=== PATIENT | female | born 1945 | race Caucasian/White ===

== ENCOUNTER 2023-11-07 19:55 | Inpatient (IN) | payer MEDICARE, OTHER, SELFPAY ==
[2023-11-07 20:36] VITALS: BMI 21.6
[2023-11-07 20:37] VITALS: BP 204/99; PULSE 70; RESP 18; TEMP 36.6; O2SAT 98
[2023-11-07 22:10] VITALS: BP 200/88; PULSE 81
[2023-11-07 22:41] VITALS: BP 200/88
[2023-11-07] MEDS: hydrALAZINE HCl 50 MG TABLET 100 MG PO (22:41)
[2023-11-07 22:42] VITALS: BP 200/88
[2023-11-07] MEDS: Montelukast Sodium 10 MG TABLET PO (22:42)
[2023-11-07] MEDS: Losartan Potassium 50 MG TABLET 100 MG PO (22:42)
[2023-11-07 23:46] VITALS: BP 160/65; PULSE 76
--- NOTE | 2023-11-07 23:54 | PC.NURSE ---
Admission Note Isabella Moise (Diana), 77 [id number], presented to [facility] ED for psychosis. She was discharged from [facility] facility on the same day. Patient has an extensive past medical history of Asthma, Hypertension, Hyperlipidemia, Hypokalemia, Polycythemia vera (per patient), Stage 3 chronic kidney disease, bilateral hearing loss, Atherosclerosis, and many more. Diana arrived on [address] at 2215 on 11/07/2023, on 12 B, with an admitting diagnosis of Unspecified Psychosis. She has depression as current psychiatric diagnosis. The patient is Alert & Oriented x 3; behavior cheerful, pleasant, anxious, hyperverbal, thought content appears clear; thought process tangential. Mood pleasant and affects is congruent to mood. She rates her depression 5/10 and Anxiety 9/10, but denies SI/HI/AVH. Diana contracted for safety.? She ambulates independently but she is at high fall risk due to recent fall history. Patient is medication compliant, takes her meds whole. She reported her appetite is getting better but also reported recent? substantial weight loss. Patient is independent of the ADL, Skin intact. VSS except BP; 204/99 at the time of arrival and follow-up was 200/88, provider notified/administered scheduled Losartan 100 mg and Hydralazine 100 mg and subsequent BP was 160/65. Diana's lab results are unremarkable. Med rec completed/provider notified/ med approved by admitting psych provider/MAR active. Patient is fully compliant with the admission process. Unit orientation completed, Safety tool and Treatment plan completed/signed/filed. Legal status education provided. Notice of Rights for Temporary Involuntary Hospitalization form offered/explained/signed/filed. Patient is on a 5 minute safety check.
[2023-11-08] MEDS: traZODone HCL 50 MG TABLET PO ×2 (00:52→21:48)
[2023-11-08 08:14] LABS: Alanine Aminotransferase 33 U/L (0-31); Albumin Level 4.2 g/dL (3.5-5.0); Alkaline Phosphatase 77 U/L (39-117); Anion Gap 12 (12-20); Aspartate Amino Transferase 28 U/L (5-31); Bilirubin Total 0.3 mg/dL (0.0-1.0); Blood Urea Nitrogen 38 mg/dL (9-16); Calcium 10.7 mg/dL (8.4-10.2); Carbon Dioxide 25 mmol/L (22-29); Chloride 105 mmol/L (96-108); Cholesterol 155 mg/dL (<200); Creatinine Clr Calc Pharmacy 28.1; Estimated Glomerular Filt Rate 32; Glucose Fasting 109 mg/dL (60-99); HDL Cholesterol 71 mg/dL (>40); LDL Cholesterol Calculated 73 mg/dL (<100); Potassium 4.2 mmol/L (3.3-5.1); Sodium 138 mmol/L (135-145); Total Protein 6.3 g/dL (6.5-8.0); Triglycerides 56 mg/dL (<150)
[2023-11-08 08:33] VITALS: BP 151/70; PULSE 81; RESP 17; TEMP 36.6; O2SAT 98
[2023-11-08] MEDS: Sertraline HCL 50 MG TABLET PO (08:41)
[2023-11-08] MEDS: NIFEdipine ER 60 MG TAB.ER.24 120 MG PO (08:41)
[2023-11-08] MEDS: hydrALAZINE HCl 50 MG TABLET 100 MG PO ×3 (08:42→20:40)
[2023-11-08] MEDS: Triamterene/HCTZ 37.5/25 TABLET 1 TAB PO (08:42)
--- NOTE | 2023-11-08 10:25 | PC.NURSE ---
During med pass this morning, pt had some requests related to some of her medications and their scheduled times. Requesting that her Lipitor 80 mg be scheduled with her HS medications instead, her Plavix 75mg to be scheduled at 16:30 during dinner, and her Potassium Chloride 40meq to be changed to 20meq in the morning and the other 20meq at 16:30 during dinner as well. These medications have been charted against in the MAR for this morning, and the provider Dr. Saxena has been notified via tiger text of the patient's requests.
[2023-11-08] MEDS: Fluticasone Propionate Nasal 16 GM SPRAY 2 SPRAY NOSTRIL-B (10:38)
[2023-11-08] MEDS: Albuterol Sulfate 90 MCG 8 GM INHALER 2 PUFF INHALE ×2 (11:14→22:28)
--- NOTE | 2023-11-08 12:43 | P.CONHOSP_ITS ---
History of Present Illness Data of Consult Service Date: 11/08/23 Requesting physician: Kofi Trevino Primary Care Provider: Unknown Physician HPI Reason for consult: medical consult 77 yo f with a pmhx of depression ?bipolar, moderate persistent asthma, hypertension, hyperlipidemia, hypokalemia, polycythemia vera, stage IIIB CKD, hearing loss, PID/CAD, hyperparathyroidism, subclinical hypo thyroidism, ARCHIE status post angio 01/19 and 12/21, solitary R kidney, [facility] to psychosis and depression. Recently treated for UTI and repeat UA on 11/04 was negative. Patient has no medical concerns today aside from assuring that she has proper medication management. Review of Systems 2 Review of Systems: Difficult to obtain review of systems due to slight of thoughts and rushed exam as she has other things she would like to do and did not want to have exam. Difficult to keep focused on conversation. Constitutional: Constitutional: Denies fatigue Eyes: Eyes: Denies change in vision ENT: Reports Normal hearing present Cardiovascular: Cardiovascular: Denies chest pain and Denies dyspnea Respiratory: Respiratory: Denies dyspnea Gastrointestinal: Gastrointestinal: Denies abdominal pain Genitourinary: Genitourinary: Denies dysuria Musculoskeletal: Musculoskeletal: Reports back pain (chronic) Integumentary/Breasts: Skin/Breast: Denies rash Neurologic: Reports Normal hearing present Endocrine: Endocrine: Denies fatigue [facility] Medical History (Updated 11/08/23 @ 15:28 by Venus Martinez PA-C) ARCHIE (renal artery stenosis) Hypothyroidism Hyperparathyroidism PAD (peripheral artery disease) CAD (coronary artery disease) CKD (chronic kidney disease) stage 3, GFR 30-59 ml/min Polycythemia Hypokalemia Hyperlipidemia Hypertension Moderate persistent asthma Depression Functional capacity: independent ambulation Social History Household Members: None Household Members Other:: helper Housing: Condominium Do you presently have visiting nurse or other home services: No Patient Tobacco Use Status: Never used Tobacco Use of substances other than those prescribed or required for medical reasons: No Currently Displaying Signs/Symptoms of Drug Intoxication Withdrawal: No Have you been hit, kicked, punched, or otherwise hurt by someone within the past year? If so, by whom?: No Advance Directives: No Advance Directives Information Provided: No Do you have thoughts of harming others: None Do you have a plan to hurt others: No Plan Recently lost weight without trying: Yes How much weight loss: 34pounds or more Eating poorly because of decreased appetite: No Nutrition screen score: 6 Nutrition Risks: No Nutritional Risk Patient : No : No Poor oral hygiene: No service: No Meds Allergies Allergy/AdvReac Type Severity Reaction Status Date / Time aspirin Allergy Intermediate Shortness Verified 11/07/23 20:23 of Breath doxazosin Allergy Intermediate Swelling Verified 11/07/23 20:28 pravastatin Allergy Intermediate Muscle Pain Verified 11/07/23 20:26 prochlorperazine Allergy Intermediate Shortness Verified 11/07/23 20:27 of Breath spironolactone Allergy Intermediate Nausea Verified 11/07/23 20:23 Sulfa (Sulfonamide Allergy Intermediate Wheezing Verified 11/07/23 20:28 Antibiotics) labetalol Allergy Swelling Verified 11/07/23 20:25 Penicillins Allergy Shortness Verified 11/07/23 20:26 of Breath Iodinated Contrast Media AdvReac Severe Shortness Verified 11/07/23 20:24 of Breath Active Medications: Current Medications Acetaminophen (Acetaminophen 325 Mg Tablet) 650 mg PO Q6H PRN PRN Reason: Headache/Pain Mild Scale (1-3) Al Hydroxide/Mg Hydroxide (Magnesium Hydrox/Alum Hydrox 30 Ml Oral.Susp) 30 ml PO Q6H PRN PRN Reason: Heartburn/Nausea Albuterol Sulfate (Albuterol Sulfate 90 Mcg 8 Gm Inhaler) 2 puff INHALE Q4H PRN PRN Reason: Shortness Of Breath Or Wheezing Last Admin: 11/08/23 11:14 Dose: 2 puff Atorvastatin Calcium (Atorvastatin Calcium 80 Mg Tablet) 80 mg PO DAILY [facility] Last Admin: 11/08/23 10:25 Dose: Not Given Clopidogrel Bisulfate (Clopidogrel Bisulfate 75 Mg Tablet) 75 mg PO DAILY [facility] Last Admin: 11/08/23 10:25 Dose: Not Given Fluticasone Propionate (Fluticasone Propionate Nasal 16 Gm Brandt) 2 spray NOSTRIL-B DAILY [facility] Last Admin: 11/08/23 10:38 Dose: 2 spray Hydralazine HCl (Hydralazine Hcl 50 Mg Tablet) 100 mg PO TID [facility]; Protocol Last Admin: 11/08/23 08:42 Dose: 100 mg Hydroxyzine HCl (Hydroxyzine Hcl 25 Mg Tablet) 25 mg PO Q6H PRN PRN Reason: Anxiety Losartan Potassium (Losartan Potassium 50 Mg Tablet) 100 mg PO BEDTIME [facility]; Protocol Last Admin: 11/07/23 22:42 Dose: 100 mg Magnesium Hydroxide (Milk Of Magnesia 30 Ml Oral.Susp) 30 ml PO DAILY PRN PRN Reason: Constipation Montelukast Sodium (Montelukast Sodium 10 Mg Tablet) 10 mg PO BEDTIME [facility] Last Admin: 11/07/23 22:42 Dose: 10 mg Nifedipine (Nifedipine Er 60 Mg Tab.Er.24) 120 mg PO DAILY [facility]; Protocol Last Admin: 11/08/23 08:41 Dose: 120 mg Non-Formulary Medication (Coenzyme Q10) 200 mg PO DAILY [facility] Non-Formulary Medication (Ruxolitinib [Jakafi]) 5 mg PO BID [facility] Olanzapine (Olanzapine 2.5 Mg Tablet) 2.5 mg PO BEDTIME [facility] Potassium Chloride (Potassium Chloride Er 20 Meq Tab.Er.Prt) 40 meq PO DAILY [facility] Last Admin: 11/08/23 10:25 Dose: Not Given Sertraline HCl (Sertraline Hcl 50 Mg Tablet) 50 mg PO DAILY [facility] Last Admin: 11/08/23 08:41 Dose: 50 mg Trazodone HCl (Trazodone Hcl 50 Mg Tablet) 50 mg PO BEDTIME MRX1 PRN PRN Reason: Insomnia Last Admin: 11/08/23 00:52 Dose: 50 mg Triamterene/Hydrochlorothiazide (Triamterene/Hctz 37.5/25 Tablet) 1 tab PO DAILY [facility]; Protocol Last Admin: 11/08/23 08:42 Dose: 1 tab Home Medications ?Medication ?Instructions ?Recorded ?Confirmed ?Last Taken ?Type albuterol sulfate 90 mcg/actuation 2 puff inhalation Q4-6H PRN 11/07/23 11/07/23 Unknown History aerosol inhaler Shortness Of Breath Or Wheezing atorvastatin 80 mg tablet 80 mg PO DAILY 11/07/23 11/07/23 Unknown History clopidogrel 75 mg tablet 75 mg PO DAILY 11/07/23 11/07/23 Unknown History coenzyme Q10 200 mg capsule 200 mg PO DAILY 11/07/23 11/07/23 11/07/23 09:00 History fluticasone propionate 50 2 spray intranasal DAILY 11/07/23 11/07/23 11/07/23 08:00 History mcg/actuation nasal spray,suspension hydralazine 50 mg tablet 100 mg PO TID 11/07/23 11/07/23 Unknown History losartan 100 mg tablet 100 mg PO BEDTIME 11/07/23 11/07/23 11/06/23 22:00 History montelukast 10 mg tablet 10 mg PO BEDTIME 11/07/23 11/07/23 Unknown History nifedipine 60 mg tablet,extended 120 mg PO DAILY 11/07/23 11/07/23 11/07/23 08:00 History release 24 hr potassium chloride 10 mEq 40 meq PO DAILY 11/07/23 11/07/23 Unknown History tablet,extended release ruxolitinib 5 mg tablet (Jakafi) 5 mg PO BID 11/07/23 11/07/23 11/07/23 16:00 History sertraline 50 mg tablet 50 mg PO DAILY 11/07/23 11/07/23 Unknown History triamterene 37.5 1 tab PO DAILY 11/07/23 11/07/23 11/07/23 08:00 History mg-hydrochlorothiazide 25 mg tablet Physical Exam 2 Vital Signs and Narrative: Vital Signs: Last Vital Signs Temp 97.8 F 11/08/23 08:33 Pulse 81 11/08/23 08:33 Resp 17 11/08/23 08:33 BP 151/70 H 11/08/23 08:33 Pulse Ox 98 11/08/23 08:33 O2 Del Method Room Air 11/08/23 08:33 BMI result Body Mass Index 21.6 General: AOx3, no acute distress Resp: CTA bilaterally CVS: RRR, +mumur LUSB and RUSB GI: +BS, NT, no distention Skin: Warm, dry Neuro: Cranial nerves II-XII grossly intact bilaterally. Motor grossly intact bilaterally Extremities: No edema Psych: Appropriate affect, flight of thoughts - able to redirect Neuro: Cranial nerves: Yes Normal hearing present Results Labs 11/08/23 07:55 Labs: Laboratory Results - last 24 hr 11/08/23 07:55 Anion Gap 12 Estim Creat Clear Calc 28.1 Estimated GFR 32 Fasting Glucose 109 H Calcium 10.7 H Total Bilirubin 0.3 AST 28 ALT 33 H Alkaline Phosphatase 77 Total Protein 6.3 L Albumin 4.2 Triglycerides 56 Cholesterol 155 LDL Cholesterol, Calc 73 HDL Cholesterol 71 Assessment and Plan (1) Routine medical exam: Status: Acute Plan 77 yo f with a pmhx of depression ?bipolar, moderate persistent asthma, hypertension, hyperlipidemia, hypokalemia, polycythemia, stage IIIB CKD, hearing loss, PAD/CAD, hyperparathyroidism, subclinical hypothyroidism, ARCHIE status post angio 01/19 and 12/21, solitary R kidney, [facility] to psychosis and depression. depression/mood disorder - plan per psych HTN - continue hydralazine, losartan, triamterene-HCTZ, nifedipine, co Q10 HLD - continue atorvastatin 80mg QD hypokalemia - continue K 40meq QD polycythemia - continue ruxolitinib CKD IIIB - Cr stable from previous PAD/CAD - continue plavix Thank you for allowing us to participate in her care. Signing off for now. Please reach out if any questions or concerns.
[2023-11-08] MEDS: Acetaminophen 325 MG TABLET 650 MG PO ×2 (13:20→20:42)
--- NOTE | 2023-11-08 15:28 | HO.PSYADMNOT ---
HPI Date of Service: 11/08/23 Chief Complaint: Psychosis unspecified Sources of Information: patient interviewed, chart reviewed and crisis/core team assessment reviewed HPI Subjective Notes: Section 12B Narrative: The patient is a 77-year-old female, , mother of adult children, recently discharged from [facility] the day before of his her readmission to the emergency room after she showed clear symptoms of carmen and psychosis. According to the crisis assessment the patient was discharged the day before of presenting herself in the emergency room since she was with racing thoughts, auditory hallucinations and disorganized behavior. According to the crisis team the patient got an argument with her boyfriend and it was raining outside in [place] [employer] [place] and the police got involved. Her license was confiscated and she was brought to the emergency room. On intake interview, the patient was very pleasant cooperative, with fast speech, very expansive mood and speaking and using sign language. The patient asked for changes in her medications since she is taking several pills and she wants to prefer not to take anything. She denies active hallucinations or delusions but she was unable to follow the full interview due to flight of ideas. She adamantly denies suicidal ideation. The patient is a very poor historian and will try to gather collateral information she is able to contract for safety. Past Psychiatric History: Recently discharged from [facility] the day before of the admission to the emergency room of another hospital. As per the crisis assessment, in the last 6 or 12 months the patient had been manic and psychotic. Medical Evaluation Reviewed: Yes [facility] Medical History (Updated 11/08/23 @ 17:02 by Kofi Trevino MD) ARCHIE (renal artery stenosis) Hypothyroidism Hyperparathyroidism PAD (peripheral artery disease) CAD (coronary artery disease) CKD (chronic kidney disease) stage 3, GFR 30-59 ml/min Polycythemia Hypokalemia Hyperlipidemia Hypertension Moderate persistent asthma Depression Family History: Apparently her mother was mentally ill. Social History: The patient was twice her 1st committed suicide in [place] by jumping off a window in front of her, she remarried. She had a strange relation with some of her adult children. Unclear past psychiatric history Substance History: Denies Trauma History: Reported trauma in the past Diagnostics Vital Signs (24Hr): Vital Signs - 24 hr 11/07/23 20:37 11/07/23 22:10 11/07/23 22:41 Temperature 98 F Pulse Rate 70 81 Respiratory Rate 18 Blood Pressure 204/99 H 200/88 H 200/88 H Pulse Oximetry 98 Oxygen Delivery Method Room Air 11/07/23 22:42 11/07/23 23:46 11/08/23 08:33 Temperature 97.8 F Pulse Rate 76 81 Respiratory Rate 17 Blood Pressure 200/88 H 160/65 H 151/70 H Pulse Oximetry 98 Oxygen Delivery Method Room Air BMI result Body Mass Index 21.6 Labs 11/08/23 07:55 Labs: Laboratory Results - last 48 hr 11/08/23 07:55 Sodium 138 Potassium 4.2 Chloride 105 Carbon Dioxide 25 Anion Gap 12 BUN 38 H Creatinine 1.59 H Estim Creat Clear Calc 28.1 Estimated GFR 32 Fasting Glucose 109 H Calcium 10.7 H Total Bilirubin 0.3 AST 28 ALT 33 H Alkaline Phosphatase 77 Total Protein 6.3 L Albumin 4.2 Triglycerides 56 Cholesterol 155 LDL Cholesterol, Calc 73 HDL Cholesterol 71 Meds/Allergies Meds Home Medications ?Medication ?Instructions ?Recorded ?Confirmed ?Type albuterol sulfate 90 mcg/actuation 2 puff inhalation Q4-6H PRN 11/07/23 11/07/23 History aerosol inhaler Shortness Of Breath Or Wheezing atorvastatin 80 mg tablet 80 mg PO DAILY 11/07/23 11/07/23 History clopidogrel 75 mg tablet 75 mg PO DAILY 11/07/23 11/07/23 History coenzyme Q10 200 mg capsule 200 mg PO DAILY 11/07/23 11/07/23 History fluticasone propionate 50 2 spray intranasal DAILY 11/07/23 11/07/23 History mcg/actuation nasal spray,suspension hydralazine 50 mg tablet 100 mg PO TID 11/07/23 11/07/23 History losartan 100 mg tablet 100 mg PO BEDTIME 11/07/23 11/07/23 History montelukast 10 mg tablet 10 mg PO BEDTIME 11/07/23 11/07/23 History nifedipine 60 mg tablet,extended 120 mg PO DAILY 11/07/23 11/07/23 History release 24 hr potassium chloride 10 mEq 40 meq PO DAILY 11/07/23 11/07/23 History tablet,extended release ruxolitinib 5 mg tablet (Jakafi) 5 mg PO BID 11/07/23 11/07/23 History sertraline 50 mg tablet 50 mg PO DAILY 11/07/23 11/07/23 History triamterene 37.5 1 tab PO DAILY 11/07/23 11/07/23 History mg-hydrochlorothiazide 25 mg tablet Allergies Allergies Allergy/AdvReac Type Severity Reaction Status Date / Time aspirin Allergy Intermediate Shortness Verified 11/07/23 20:23 of Breath doxazosin Allergy Intermediate Swelling Verified 11/07/23 20:28 pravastatin Allergy Intermediate Muscle Pain Verified 11/07/23 20:26 prochlorperazine Allergy Intermediate Shortness Verified 11/07/23 20:27 of Breath spironolactone Allergy Intermediate Nausea Verified 11/07/23 20:23 Sulfa (Sulfonamide Allergy Intermediate Wheezing Verified 11/07/23 20:28 Antibiotics) labetalol Allergy Swelling Verified 11/07/23 20:25 Penicillins Allergy Shortness Verified 11/07/23 20:26 of Breath Iodinated Contrast Media AdvReac Severe Shortness Verified 11/07/23 20:24 of Breath Mental Status Exam Mental Status Exam Patient Appearance: Appropriate Patient Orientation: Person, Place and Situation Level of Consciousness: Awake and Appropriate Patient Behavior: Talkative Mood Description: Happy, Cheerful and Anxious Affect Description: Labile and Elated Ability to Follow Directions: Good Speech Pattern: Rapid and Animated Hallucinations: None Delusions: Ideas of Reference Thought Process: Racing and Distracted Thought Content: positive for Circumstantial and positive for Tangential Judgement: Poor Assessment & Plan Assessment & Plan (1) Bipolar disorder: Status: Acute Code(s): F31.9 - Bipolar disorder, unspecified Plan The patient is an elderly female with a past history of recent admission to [facility] for psychosis and carmen, readmitted for irritable behavior and disorganization with carmen. On interview the patient was grossly manic but easily redirectable. Plan 1. Gather collateral information. 2. Keep on 15 minute checks. 3. Start Zyprexa 2.5 p.o. q.h.s. as a mood stabilizer antipsychotics. 4. Reassessment with results. Patient educated on: diagnosis Reason for continued inpatient stay Substantial Risk for: inability to function, rapid decompensation and med/psych decompensation Statement Statement: I have reviewed the history and physical and performed a pertinent examination on my patient. No changes have occurred unless specified. If the History and Physical was not performed prior to admission, the Hospitalist's service will be consulted for completing the admission physical. Time Spent With Patient Time: Total time managing care of this patient today __45__ minutes.
[2023-11-08] MEDS: Clopidogrel Bisulfate 75 MG TABLET PO (17:28)
[2023-11-08] MEDS: Potassium Chloride ER 20 MEQ TAB.ER.PRT PO (17:29)
[2023-11-08 20:00] VITALS: BP 152/67; PULSE 84; RESP 16; TEMP 36.6; O2SAT 98
[2023-11-08 20:40] VITALS: BP 152/67
[2023-11-08] MEDS: Atorvastatin Calcium 80 MG TABLET PO (20:40)
[2023-11-08 20:41] VITALS: BP 152/67
[2023-11-08] MEDS: OLANZapine 2.5 MG TABLET PO (20:41)
[2023-11-08] MEDS: Losartan Potassium 50 MG TABLET 100 MG PO (20:41)
[2023-11-08] MEDS: Montelukast Sodium 10 MG TABLET PO (20:41)
[2023-11-08] MEDS: hydrOXYzine HCL 25 MG TABLET PO (21:48)
[2023-11-09 08:51] VITALS: BP 146/74; PULSE 91; RESP 17; TEMP 36.3; O2SAT 97
[2023-11-09] MEDS: Sertraline HCL 50 MG TABLET PO (08:55)
[2023-11-09] MEDS: hydrALAZINE HCl 50 MG TABLET 100 MG PO ×3 (08:57→21:24)
[2023-11-09] MEDS: NIFEdipine ER 60 MG TAB.ER.24 120 MG PO (08:57)
[2023-11-09] MEDS: Triamterene/HCTZ 37.5/25 TABLET 1 TAB PO (08:57)
[2023-11-09] MEDS: Potassium Chloride ER 20 MEQ TAB.ER.PRT PO ×2 (08:57→16:43)
[2023-11-09] MEDS: Fluticasone Propionate Nasal 16 GM SPRAY 2 SPRAY NOSTRIL-B (09:04)
--- NOTE | 2023-11-09 09:28 | PC.NURSE ---
Patient was offered the Flu Vaccine this morning, to which she declined I always get sick after I take it, and I'd rather get it at my own [facility] where [facility] get all my shots .
[2023-11-09] MEDS: Acetaminophen 325 MG TABLET 650 MG PO ×2 (11:14→21:54)
--- NOTE | 2023-11-09 15:17 | P.PNPSI_ITS ---
Subjective Subjective Date of Service: 11/09/23 Reason For Visit: Psychosis unspecified Subjective Notes: Conditional Voluntary Interim History: The nursing staff reported the patient slept 4 hours she still manic with fast speech. The social services specialist reported the same came and visit her. The occupational therapist reported that she tried to go to groups. On interview the patient reported improved sleep but she only slept 4 hours. We are going to increase Zyprexa to 5 mg p.o. q.h.s.. She reported that Zyprexa helped her very well at night. Mental Status Exam Mental Status Exam Patient Appearance: Appropriate Patient Orientation: Person and Situation Level of Consciousness: Awake and Appropriate Patient Behavior: Guarded and Passive Mood Description: Withdrawn Affect Description: Constricted Patient Cognition Impaired: Yes Ability to Follow Directions: Good Speech Pattern: Clear Hallucinations: None Delusions: Not Present Thought Process: Distracted and Slowed Thinking Thought Content: positive for [place] and positive for Poverty of Content Judgement: Fair Diagnostics Vital Signs (24Hr): Vital Signs - 24 hr 11/08/23 20:00 11/08/23 20:40 11/08/23 20:41 Temperature 98 F Pulse Rate 84 Respiratory Rate 16 Blood Pressure 152/67 H 152/67 H 152/67 H Pulse Oximetry 98 Oxygen Delivery Method Room Air 11/09/23 08:51 Temperature 97.3 F Pulse Rate 91 Respiratory Rate 17 Blood Pressure 146/74 H Pulse Oximetry 97 Oxygen Delivery Method Room Air BMI result Body Mass Index 21.6 Labs 11/08/23 07:55 Labs: Laboratory Results - last 48 hr 11/08/23 07:55 Sodium 138 Potassium 4.2 Chloride 105 Carbon Dioxide 25 Anion Gap 12 BUN 38 H Creatinine 1.59 H Estim Creat Clear Calc 28.1 Estimated GFR 32 Fasting Glucose 109 H Calcium 10.7 H Total Bilirubin 0.3 AST 28 ALT 33 H Alkaline Phosphatase 77 Total Protein 6.3 L Albumin 4.2 Triglycerides 56 Cholesterol 155 LDL Cholesterol, Calc 73 HDL Cholesterol 71 Medications Medications Current Medications Acetaminophen (Acetaminophen 325 Mg Tablet) 650 mg PO Q6H PRN PRN Reason: Headache/Pain Mild Scale (1-3) Last Admin: 11/09/23 11:14 Dose: 650 mg Al Hydroxide/Mg Hydroxide (Magnesium Hydrox/Alum Hydrox 30 Ml Oral.Susp) 30 ml PO Q6H PRN PRN Reason: Heartburn/Nausea Albuterol Sulfate (Albuterol Sulfate 90 Mcg 8 Gm Inhaler) 2 puff INHALE Q4H PRN PRN Reason: Shortness Of Breath Or Wheezing Last Admin: 11/08/23 22:28 Dose: 2 puff Atorvastatin Calcium (Atorvastatin Calcium 80 Mg Tablet) 80 mg PO BEDTIME [facility] Last Admin: 11/08/23 20:40 Dose: 80 mg Clopidogrel Bisulfate (Clopidogrel Bisulfate 75 Mg Tablet) 75 mg PO DAILY@1630 [facility] Last Admin: 11/08/23 17:28 Dose: 75 mg Fluticasone Propionate (Fluticasone Propionate Nasal 16 Gm [place]) 2 spray NOSTRIL-B DAILY [facility] Last Admin: 11/09/23 09:04 Dose: 2 spray Hydralazine HCl (Hydralazine Hcl 50 Mg Tablet) 100 mg PO TID [facility]; Protocol Last Admin: 11/09/23 08:57 Dose: 100 mg Hydroxyzine HCl (Hydroxyzine Hcl 25 Mg Tablet) 25 mg PO Q6H PRN PRN Reason: Anxiety Last Admin: 11/08/23 21:48 Dose: 25 mg Losartan Potassium (Losartan Potassium 50 Mg Tablet) 100 mg PO BEDTIME [facility]; Protocol Last Admin: 11/08/23 20:41 Dose: 100 mg Magnesium Hydroxide (Milk Of Magnesia 30 Ml Oral.Susp) 30 ml PO DAILY PRN PRN Reason: Constipation Montelukast Sodium (Montelukast Sodium 10 Mg Tablet) 10 mg PO BEDTIME [facility] Last Admin: 11/08/23 20:41 Dose: 10 mg Nifedipine (Nifedipine Er 60 Mg Tab.Er.24) 120 mg PO DAILY [facility]; Protocol Last Admin: 11/09/23 08:57 Dose: 120 mg Non-Formulary Medication (Ruxolitinib [Jakafi]) 5 mg PO BID [facility] Olanzapine (Olanzapine 5 Mg Tablet) 5 mg PO BEDTIME [facility] Potassium Chloride (Potassium Chloride Er 20 Meq Tab.Er.Prt) 20 meq PO BID@0830,1630 [facility] Last Admin: 11/09/23 08:57 Dose: 20 meq Sertraline HCl (Sertraline Hcl 50 Mg Tablet) 50 mg PO DAILY [facility] Last Admin: 11/09/23 08:55 Dose: 50 mg Trazodone HCl (Trazodone Hcl 50 Mg Tablet) 50 mg PO BEDTIME MRX1 PRN PRN Reason: Insomnia Last Admin: 11/08/23 21:48 Dose: 50 mg Triamterene/Hydrochlorothiazide (Triamterene/Hctz 37.5/25 Tablet) 1 tab PO DAILY [facility]; Protocol Last Admin: 11/09/23 08:57 Dose: 1 tab Allergies Allergies Allergy/AdvReac Type Severity Reaction Status Date / Time aspirin Allergy Intermediate Shortness Verified 11/07/23 20:23 of Breath doxazosin Allergy Intermediate Swelling Verified 11/07/23 20:28 pravastatin Allergy Intermediate Muscle Pain Verified 11/07/23 20:26 prochlorperazine Allergy Intermediate Shortness Verified 11/07/23 20:27 of Breath spironolactone Allergy Intermediate Nausea Verified 11/07/23 20:23 Sulfa (Sulfonamide Allergy Intermediate Wheezing Verified 11/07/23 20:28 Antibiotics) labetalol Allergy Swelling Verified 11/07/23 20:25 Penicillins Allergy Shortness Verified 11/07/23 20:26 of Breath Iodinated Contrast Media AdvReac Severe Shortness Verified 11/07/23 20:24 of Breath Assessment & Plan Assessment & Plan (1) Bipolar disorder: Status: Acute Code(s): F31.9 - Bipolar disorder, unspecified Plan The patient is an elderly female with a past history of recent admission to [facility] for psychosis and carmen, readmitted for irritable behavior and disorganization with carmen. On interview the patient was grossly manic but easily redirectable. Plan 1. Gather collateral information. 2. Keep on 15 minute checks. 3. Start Zyprexa 2.5 p.o. q.h.s. as a mood stabilizer antipsychotics. On November 08 we are increasing to 5 mg p.o. q.h.s. to target carmen and psychosis. 4. Reassessment with results. Reason for continued inpatient stay Substantial Risk for: inability to function, rapid decompensation and med/psych decompensation Time Spent With Patient Time: Total time managing care of this patient today _20___ minutes.
[2023-11-09 16:03] VITALS: BP 152/68
[2023-11-09] MEDS: Clopidogrel Bisulfate 75 MG TABLET PO (16:43)
[2023-11-09 20:00] VITALS: PULSE 87; RESP 18; TEMP 36.3; O2SAT 97
[2023-11-09 21:24] VITALS: BP 134/72
[2023-11-09] MEDS: hydrOXYzine HCL 25 MG TABLET PO (21:24)
[2023-11-09] MEDS: Montelukast Sodium 10 MG TABLET PO (21:24)
[2023-11-09] MEDS: OLANZapine 5 MG TABLET PO (21:25)
[2023-11-09] MEDS: Atorvastatin Calcium 80 MG TABLET PO (21:25)
[2023-11-09] MEDS: Losartan Potassium 50 MG TABLET 100 MG PO (21:25)
[2023-11-10] MEDS: Acetaminophen 325 MG TABLET 650 MG PO ×3 (03:15→17:08)
[2023-11-10] MEDS: Albuterol Sulfate 90 MCG 8 GM INHALER 2 PUFF INHALE ×2 (03:15→17:14)
[2023-11-10] MEDS: hydrOXYzine HCL 25 MG TABLET PO ×2 (03:16→17:07)
[2023-11-10 08:00] VITALS: BP 152/69; PULSE 78; RESP 16; TEMP 36.9; O2SAT 97
[2023-11-10] MEDS: NIFEdipine ER 60 MG TAB.ER.24 120 MG PO (08:09)
[2023-11-10] MEDS: Triamterene/HCTZ 37.5/25 TABLET 1 TAB PO (08:10)
[2023-11-10] MEDS: hydrALAZINE HCl 50 MG TABLET 100 MG PO ×3 (08:11→20:49)
[2023-11-10] MEDS: Fluticasone Propionate Nasal 16 GM SPRAY 2 SPRAY NOSTRIL-B (08:11)
[2023-11-10] MEDS: Potassium Chloride ER 20 MEQ TAB.ER.PRT PO ×2 (08:11→16:54)
[2023-11-10] MEDS: Sertraline HCL 50 MG TABLET PO (08:15)
[2023-11-10 15:04] VITALS: BP 177/74; PULSE 75; RESP 18
--- NOTE | 2023-11-10 15:09 | HO.PSYCHPN ---
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 Reports that her legs are swollen which they have been for a long time but says they are worse however refuses Chaim stockings. She asks for coenzyme Q which she says she takes at home and property underwriter agrees to review history. Aircraft Layout Worker discussed mood stabilizer but currently ambivalent. BP elevated; given hydralazine Mental Status Exam Mental Status Exam Narrative: Pt is alert and oriented; behavior is excessively talkative, overly friendly and hypomanic; patient is not in distress; dressed in casual attire with unkempt hair but adequate hygiene; mood is described as good and affect congruent; eye contact appropriate; Speech is verbose and moderately pressured but normal volume and prosody and not pressured; psychomotor agitation present; thought process is goal directed but circumstantial and tangential; Thought content is on her history, current medical issues; denies any SI/HI. Patients insight and judgment impaired Diagnostics Vital Signs (24Hr): Vital Signs - 24 hr 11/09/23 16:03 11/09/23 20:00 11/09/23 21:24 Temperature 97.3 F Pulse Rate 87 Respiratory Rate 18 Blood Pressure 152/68 H 134/72 Pulse Oximetry 97 Oxygen Delivery Method 11/10/23 08:00 11/10/23 15:04 Temperature 98.4 F Pulse Rate 78 75 Respiratory Rate 16 18 Blood Pressure 152/69 H 177/74 H Pulse Oximetry 97 Oxygen Delivery Method Room Air BMI result Body Mass Index 21.6 Labs 11/14/23 21:52 11/16/23 08:11 Medications Medications Current Medications Acetaminophen (Acetaminophen 325 Mg Tablet) 650 mg PO Q6H PRN PRN Reason: Headache/Pain Mild Scale (1-3) Last Admin: 11/10/23 09:48 Dose: 650 mg Al Hydroxide/Mg Hydroxide (Magnesium Hydrox/Alum Hydrox 30 Ml Oral.Susp) 30 ml PO Q6H PRN PRN Reason: Heartburn/Nausea Albuterol Sulfate (Albuterol Sulfate 90 Mcg 8 Gm Inhaler) 2 puff INHALE Q4H PRN PRN Reason: Shortness Of Breath Or Wheezing Last Admin: 11/10/23 03:15 Dose: 2 puff Atorvastatin Calcium (Atorvastatin Calcium 80 Mg Tablet) 80 mg PO BEDTIME [facility] Last Admin: 11/09/23 21:25 Dose: 80 mg Clopidogrel Bisulfate (Clopidogrel Bisulfate 75 Mg Tablet) 75 mg PO DAILY@1630 [facility] Last Admin: 11/09/23 16:43 Dose: 75 mg Fluticasone Propionate (Fluticasone Propionate Nasal 16 Gm [place]) 2 spray NOSTRIL-B DAILY [facility] Last Admin: 11/10/23 08:11 Dose: 2 spray Hydralazine HCl (Hydralazine Hcl 50 Mg Tablet) 100 mg PO TID [facility]; Protocol Last Admin: 11/10/23 15:00 Dose: 100 mg Hydroxyzine HCl (Hydroxyzine Hcl 25 Mg Tablet) 25 mg PO Q6H PRN PRN Reason: Anxiety Last Admin: 11/10/23 03:16 Dose: 25 mg Losartan Potassium (Losartan Potassium 50 Mg Tablet) 100 mg PO BEDTIME [facility]; Protocol Last Admin: 11/09/23 21:25 Dose: 100 mg Magnesium Hydroxide (Milk Of Magnesia 30 Ml Oral.Susp) 30 ml PO DAILY PRN PRN Reason: Constipation Montelukast Sodium (Montelukast Sodium 10 Mg Tablet) 10 mg PO BEDTIME [facility] Last Admin: 11/09/23 21:24 Dose: 10 mg Nifedipine (Nifedipine Er 60 Mg Tab.Er.24) 120 mg PO DAILY [facility]; Protocol Last Admin: 11/10/23 08:09 Dose: 120 mg Non-Formulary Medication (Ruxolitinib [Jakafi]) 5 mg PO BID [facility] Olanzapine (Olanzapine 5 Mg Tablet) 5 mg PO BEDTIME [facility] Last Admin: 11/09/23 21:25 Dose: 5 mg Potassium Chloride (Potassium Chloride Er 20 Meq Tab.Er.Prt) 20 meq PO BID@0830,1630 [facility] Last Admin: 11/10/23 08:11 Dose: 20 meq Sertraline HCl (Sertraline Hcl 50 Mg Tablet) 50 mg PO DAILY [facility] Last Admin: 11/10/23 08:15 Dose: 50 mg Trazodone HCl (Trazodone Hcl 50 Mg Tablet) 50 mg PO BEDTIME MRX1 PRN PRN Reason: Insomnia Last Admin: 11/08/23 21:48 Dose: 50 mg Triamterene/Hydrochlorothiazide (Triamterene/Hctz 37.5/25 Tablet) 1 tab PO DAILY [facility]; Protocol Last Admin: 11/10/23 08:10 Dose: 1 tab Allergies Allergies Allergy/AdvReac Type Severity Reaction Status Date / Time aspirin Allergy Intermediate Shortness Verified 11/07/23 20:23 of Breath doxazosin Allergy Intermediate Swelling Verified 11/07/23 20:28 pravastatin Allergy Intermediate Muscle Pain Verified 11/07/23 20:26 prochlorperazine Allergy Intermediate Shortness Verified 11/07/23 20:27 of Breath spironolactone Allergy Intermediate Nausea Verified 11/07/23 20:23 Sulfa (Sulfonamide Allergy Intermediate Wheezing Verified 11/07/23 20:28 Antibiotics) labetalol Allergy Swelling Verified 11/07/23 20:25 Penicillins Allergy Shortness Verified 11/07/23 20:26 of Breath Iodinated Contrast Media AdvReac Severe Shortness Verified 11/07/23 20:24 of Breath Assessment & Plan Assessment & Plan (1) Bipolar disorder: Status: Acute Code(s): F31.9 - Bipolar disorder, unspecified Plan The patient is an elderly female with a past history of recent admission to [facility] for psychosis and carmen, readmitted for irritable behavior and disorganization with carmen. On interview the patient was grossly manic but easily redirectable. Hospital course: 11/09 patient manic; resistant to medication changes at this time; refuses Chaim stockings, asking for coenzyme Q Will review history further, medications; will consider consult for lower limb edema; would like to start mood stabilizer if patient willing Plan 1. Gather collateral information. 2. Keep on 15 minute checks. 3. Start Zyprexa 2.5 p.o. q.h.s. as a mood stabilizer antipsychotics. On November 08 we are increasing to 5 mg p.o. q.h.s. to target carmen and psychosis. 4. Reassessment with results. Patient educated on: diagnosis, medication risk/benefits and medical condition Informed Consent: understands, does not understand and further education needed Reason for continued inpatient stay Substantial Risk for: inability to function and rapid decompensation Time Spent With Patient Time: Total time managing care of this patient today ____ minutes.
[2023-11-10] MEDS: Clopidogrel Bisulfate 75 MG TABLET PO (16:54)
[2023-11-10 20:00] VITALS: BP 173/78; PULSE 82; RESP 18; TEMP 36.2; O2SAT 99
[2023-11-10] MEDS: Montelukast Sodium 10 MG TABLET PO (20:49)
[2023-11-10] MEDS: Atorvastatin Calcium 80 MG TABLET PO (20:49)
[2023-11-10] MEDS: Divalproex Sodium 250 MG TABLET.DR PO (20:49)
[2023-11-10] MEDS: Losartan Potassium 50 MG TABLET 100 MG PO (20:49)
[2023-11-10] MEDS: LORazepam 1 MG TABLET PO (20:49)
[2023-11-10] MEDS: OLANZapine 5 MG TABLET PO (20:50)
[2023-11-11 08:36] VITALS: O2SAT 96
[2023-11-11] MEDS: Acetaminophen 325 MG TABLET 650 MG PO ×2 (08:43→18:23)
[2023-11-11] MEDS: Triamterene/HCTZ 37.5/25 TABLET 1 TAB PO (08:44)
[2023-11-11] MEDS: Sertraline HCL 50 MG TABLET PO (08:44)
[2023-11-11] MEDS: NIFEdipine ER 60 MG TAB.ER.24 120 MG PO (08:44)
[2023-11-11] MEDS: Potassium Chloride ER 20 MEQ TAB.ER.PRT PO ×2 (08:44→16:34)
[2023-11-11] MEDS: hydrALAZINE HCl 50 MG TABLET 100 MG PO ×3 (08:44→21:05)
[2023-11-11] MEDS: Fluticasone Propionate Nasal 16 GM SPRAY 2 SPRAY NOSTRIL-B (08:45)
[2023-11-11 16:32] VITALS: BP 162/73; PULSE 84
[2023-11-11] MEDS: Clopidogrel Bisulfate 75 MG TABLET PO (16:35)
--- NOTE | 2023-11-11 16:49 | P.PNPSI_ITS ---
Subjective Subjective Date of Service: 11/11/23 Reason For Visit: Psychosis unspecified Diagnostics Vital Signs (24Hr): Vital Signs - 24 hr 11/10/23 20:00 11/11/23 08:36 11/11/23 16:32 Temperature 97.2 F Pulse Rate 82 84 Respiratory Rate 18 Blood Pressure 173/78 H 162/73 H Pulse Oximetry 99 96 Oxygen Delivery Method Room Air Room Air BMI result Body Mass Index 21.6 Labs 11/08/23 07:55 Medications Medications Current Medications Acetaminophen (Acetaminophen 325 Mg Tablet) 650 mg PO Q6H PRN PRN Reason: Headache/Pain Mild Scale (1-3) Last Admin: 11/11/23 08:43 Dose: 650 mg Al Hydroxide/Mg Hydroxide (Magnesium Hydrox/Alum Hydrox 30 Ml Oral.Susp) 30 ml PO Q6H PRN PRN Reason: Heartburn/Nausea Albuterol Sulfate (Albuterol Sulfate 90 Mcg 8 Gm Inhaler) 2 puff INHALE Q4H PRN PRN Reason: Shortness Of Breath Or Wheezing Last Admin: 11/10/23 17:14 Dose: 2 puff Atorvastatin Calcium (Atorvastatin Calcium 80 Mg Tablet) 80 mg PO BEDTIME [facility] Last Admin: 11/10/23 20:49 Dose: 80 mg Clopidogrel Bisulfate (Clopidogrel Bisulfate 75 Mg Tablet) 75 mg PO DAILY@1630 [facility] Last Admin: 11/11/23 16:35 Dose: 75 mg Divalproex Sodium (Divalproex Sodium 250 Mg Tablet.Dr) 250 mg PO BEDTIME [facility] Last Admin: 11/10/23 20:49 Dose: 250 mg Fluticasone Propionate (Fluticasone Propionate Nasal 16 Gm [place]) 2 spray NOSTRIL-B DAILY [facility] Last Admin: 11/11/23 08:45 Dose: 2 spray Hydralazine HCl (Hydralazine Hcl 50 Mg Tablet) 100 mg PO TID [facility]; Protocol Last Admin: 11/11/23 16:35 Dose: 100 mg Hydroxyzine HCl (Hydroxyzine Hcl 25 Mg Tablet) 25 mg PO Q6H PRN PRN Reason: Anxiety Last Admin: 11/10/23 17:07 Dose: 25 mg Lorazepam (Lorazepam 1 Mg Tablet) 1 mg PO BEDTIME [facility] Last Admin: 11/10/23 20:49 Dose: 1 mg Losartan Potassium (Losartan Potassium 50 Mg Tablet) 100 mg PO BEDTIME [facility]; Protocol Last Admin: 11/10/23 20:49 Dose: 100 mg Magnesium Hydroxide (Milk Of Magnesia 30 Ml Oral.Susp) 30 ml PO DAILY PRN PRN Reason: Constipation Montelukast Sodium (Montelukast Sodium 10 Mg Tablet) 10 mg PO BEDTIME [facility] Last Admin: 11/10/23 20:49 Dose: 10 mg Nifedipine (Nifedipine Er 60 Mg Tab.Er.24) 120 mg PO DAILY [facility]; Protocol Last Admin: 11/11/23 08:44 Dose: 120 mg Non-Formulary Medication (Ruxolitinib [Jakafi]) 5 mg PO BID [facility] Patient Own Coenzyme (Q10 200 Mg) 1 each PO DAILY [facility] Olanzapine (Olanzapine 5 Mg Tablet) 5 mg PO BEDTIME [facility] Last Admin: 11/10/23 20:50 Dose: 5 mg Potassium Chloride (Potassium Chloride Er 20 Meq Tab.Er.Prt) 20 meq PO BID@0830,1630 [facility] Last Admin: 11/11/23 16:34 Dose: 20 meq Sertraline HCl (Sertraline Hcl 50 Mg Tablet) 50 mg PO DAILY [facility] Last Admin: 11/11/23 08:44 Dose: 50 mg Trazodone HCl (Trazodone Hcl 50 Mg Tablet) 50 mg PO BEDTIME MRX1 PRN PRN Reason: Insomnia Last Admin: 11/08/23 21:48 Dose: 50 mg Triamterene/Hydrochlorothiazide (Triamterene/Hctz 37.5/25 Tablet) 1 tab PO DAILY [facility]; Protocol Last Admin: 11/11/23 08:44 Dose: 1 tab Allergies Allergies Allergy/AdvReac Type Severity Reaction Status Date / Time aspirin Allergy Intermediate Shortness Verified 11/07/23 20:23 of Breath doxazosin Allergy Intermediate Swelling Verified 11/07/23 20:28 pravastatin Allergy Intermediate Muscle Pain Verified 11/07/23 20:26 prochlorperazine Allergy Intermediate Shortness Verified 11/07/23 20:27 of Breath spironolactone Allergy Intermediate Nausea Verified 11/07/23 20:23 Sulfa (Sulfonamide Allergy Intermediate Wheezing Verified 11/07/23 20:28 Antibiotics) labetalol Allergy Swelling Verified 11/07/23 20:25 Penicillins Allergy Shortness Verified 11/07/23 20:26 of Breath Iodinated Contrast Media AdvReac Severe Shortness Verified 11/07/23 20:24 of Breath Assessment & Plan Assessment & Plan (1) Bipolar disorder: Status: Acute Code(s): F31.9 - Bipolar disorder, unspecified Plan The patient is an elderly female with a past history of recent admission to [facility] for psychosis and carmen, readmitted for irritable behavior and disorganization with carmen. On interview the patient was grossly manic but easily redirectable. Hospital course: 11/10 started pt on Depakote 250mg on 11/09 nighttime since no sleep night before and talking non-stop. Pt slept 11/11 Switch to Depakote ER and increase to 500mg qhs (which is mild increase since now ER) manic, talking non-stop; B/l lower limb edema and ambivalent about Robi stockings -will place medical consult Plan 1. Gather collateral information. 2. Keep on 15 minute checks. 3. Start Zyprexa 2.5 p.o. q.h.s. as a mood stabilizer antipsychotics. On November 08 we are increasing to 5 mg p.o. q.h.s. to target carmen and psychosis. 4. Reassessment with results. Patient educated on: diagnosis, medication risk/benefits and medical condition Informed Consent: understands, does not understand and further education needed Reason for continued inpatient stay Substantial Risk for: inability to function Time Spent With Patient Time: Total time managing care of this patient today ____ minutes.
[2023-11-11 20:00] VITALS: BP 175/76; PULSE 80; RESP 18; TEMP 36.1; O2SAT 98
[2023-11-11] MEDS: OLANZapine 5 MG TABLET PO (21:04)
[2023-11-11] MEDS: Montelukast Sodium 10 MG TABLET PO (21:05)
[2023-11-11] MEDS: LORazepam 1 MG TABLET PO (21:05)
[2023-11-11] MEDS: Divalproex Sodium ER 500 MG TAB.ER.24H PO (21:05)
[2023-11-11] MEDS: Atorvastatin Calcium 80 MG TABLET PO (21:05)
[2023-11-11] MEDS: Losartan Potassium 50 MG TABLET 100 MG PO (21:05)
[2023-11-11] MEDS: hydrOXYzine HCL 25 MG TABLET PO (21:05)
[2023-11-12] VITALS (12 sets, daily range): BP systolic 154–188; BP diastolic 65–81; PULSE 68–82; RESP 18; TEMP 36.5; O2SAT 96–98
[2023-11-12] MEDS: Acetaminophen 325 MG TABLET 650 MG PO ×2 (01:30→09:47)
[2023-11-12] MEDS: hydrALAZINE HCl 50 MG TABLET 100 MG PO ×3 (08:08→20:03)
[2023-11-12] MEDS: Potassium Chloride ER 20 MEQ TAB.ER.PRT PO ×2 (08:09→16:14)
[2023-11-12] MEDS: Sertraline HCL 50 MG TABLET PO (08:09)
[2023-11-12] MEDS: NIFEdipine ER 60 MG TAB.ER.24 120 MG PO (08:10)
[2023-11-12] MEDS: Triamterene/HCTZ 37.5/25 TABLET 1 TAB PO ×2 (08:14→12:40)
[2023-11-12] MEDS: Fluticasone Propionate Nasal 16 GM SPRAY 2 SPRAY NOSTRIL-B (08:17)
--- NOTE | 2023-11-12 11:05 | PM.EVENT ---
Event Note Date of Service: 11/12/23 Event Note: 77-year-old female with history of renal artery stenosis, hypertension, extensive peripheral vascular disease IV, moderate persistent asthma, hyperlipidemia, hyperparathyroidism, secondary hyperparathyroidism, osteoporosis, GERD, CKD stage 3 with solitary right kidney admitted to [facility] with consult placed hospitalist service due to worsening edema. The patient reports chronic lower extremity edema related to extensive vascular disease as well as CKD stage 3. She is on triamterene-hydrochlorothiazide among other antihypertensives so blood pressures have been uncontrolled since arrival to the unit. She reports over the last several days, lower extremity edema has also worsened with soreness in the bilateral lower extremities. Her legs are warm and well-perfused though pedal pulses are difficult to palpate secondary to 3+ edema. Blood pressure on my exam is 180/60 despite compliance with antihypertensives. She is out of bed often but has not been wearing compression or elevating legs. A/P: Worsening BLE edema due to CKD stage 3 with uncontrolled htn and PVD -Given addl dose triamterene-hctz and increase to 75/50mg daily starting tomorrow -Compression stockings ordered. Remove at bedtime -elevated legs above levels of heart while in bed and encourage OOB -recommend low sodium diet -if bp remains uncontrolled >140/90, please contact hospitalist service for further recommendations -Recommend manual bp checks Time Spent With Patient Time: Total time managing care of this patient today ____ minutes.
--- NOTE | 2023-11-12 11:59 | P.PNPSI_ITS ---
Subjective Subjective Date of Service: 11/12/23 Reason For Visit: Psychosis unspecified Subjective Notes: Conditional Voluntary Interim History: The nursing staff reported the patient had been hypomanic, hyperverbal and tangential at times. She slept 7 hours. The social media job titles reported that her son called and it seems that she had mood lability but never like this. Today on interview the patient reported that she was sleeping better still manic. We decided to increase Zyprexa to 7.5 mg p.o. q.h.s. and order blood work for tomorrow to check her Depakote level. We offer her a conditional voluntary. Mental Status Exam Mental Status Exam Patient Appearance: Well Grooomed and Appropriate Patient Orientation: Person and Situation Level of Consciousness: Awake and Appropriate Patient Behavior: Guarded and Passive Mood Description: Withdrawn Affect Description: Constricted Patient Cognition Impaired: Yes Ability to Follow Directions: Good Speech Pattern: Clear Hallucinations: None Delusions: Not Present Thought Process: Racing Thought Content: positive for Tangential Judgement: Fair Diagnostics Vital Signs (24Hr): Vital Signs - 24 hr 11/11/23 16:32 11/11/23 20:00 11/12/23 08:00 Temperature 97 F 97.7 F Pulse Rate 84 80 76 Respiratory Rate 18 18 Blood Pressure 162/73 H 175/76 H 188/81 H Pulse Oximetry 98 96 Oxygen Delivery Method Room Air Room Air 11/12/23 08:08 11/12/23 08:10 11/12/23 08:14 Temperature Pulse Rate Respiratory Rate Blood Pressure 188/81 H 188/81 H 188/81 H Pulse Oximetry Oxygen Delivery Method BMI result Body Mass Index 21.6 Labs 11/12/23 11:54 Medications Medications Current Medications Acetaminophen (Acetaminophen 325 Mg Tablet) 650 mg PO Q6H PRN PRN Reason: Headache/Pain Mild Scale (1-3) Last Admin: 11/12/23 09:47 Dose: 650 mg Al Hydroxide/Mg Hydroxide (Magnesium Hydrox/Alum Hydrox 30 Ml Oral.Susp) 30 ml PO Q6H PRN PRN Reason: Heartburn/Nausea Albuterol Sulfate (Albuterol Sulfate 90 Mcg 8 Gm Inhaler) 2 puff INHALE Q4H PRN PRN Reason: Shortness Of Breath Or Wheezing Last Admin: 11/10/23 17:14 Dose: 2 puff Atorvastatin Calcium (Atorvastatin Calcium 80 Mg Tablet) 80 mg PO BEDTIME [facility] Last Admin: 11/11/23 21:05 Dose: 80 mg Clopidogrel Bisulfate (Clopidogrel Bisulfate 75 Mg Tablet) 75 mg PO DAILY@1630 [facility] Last Admin: 11/11/23 16:35 Dose: 75 mg Divalproex Sodium (Divalproex Sodium Sprinkles 125 Mg ) 500 mg PO BEDTIME [facility] Fluticasone Propionate (Fluticasone Propionate Nasal 16 Gm [place]) 2 spray NOSTRIL-B DAILY [facility] Last Admin: 11/12/23 08:17 Dose: 2 spray Hydralazine HCl (Hydralazine Hcl 50 Mg Tablet) 100 mg PO TID [facility]; Protocol Last Admin: 11/12/23 08:08 Dose: 100 mg Hydroxyzine HCl (Hydroxyzine Hcl 25 Mg Tablet) 25 mg PO Q6H PRN PRN Reason: Anxiety Last Admin: 11/11/23 21:05 Dose: 25 mg Lorazepam (Lorazepam 1 Mg Tablet) 1 mg PO BEDTIME [facility] Last Admin: 11/11/23 21:05 Dose: 1 mg Losartan Potassium (Losartan Potassium 50 Mg Tablet) 100 mg PO BEDTIME [facility]; Protocol Last Admin: 11/11/23 21:05 Dose: 100 mg Magnesium Hydroxide (Milk Of Magnesia 30 Ml Oral.Susp) 30 ml PO DAILY PRN PRN Reason: Constipation Montelukast Sodium (Montelukast Sodium 10 Mg Tablet) 10 mg PO BEDTIME [facility] Last Admin: 11/11/23 21:05 Dose: 10 mg Nifedipine (Nifedipine Er 60 Mg Tab.Er.24) 120 mg PO DAILY [facility]; Protocol Last Admin: 11/12/23 08:10 Dose: 120 mg Non-Formulary Medication (Ruxolitinib [Jakafi]) 5 mg PO BID [facility] Patient Own Coenzyme (Q10 200 Mg) 1 each PO DAILY [facility] Olanzapine (Olanzapine 7.5 Mg Tablet) 7.5 mg PO BEDTIME [facility] Potassium Chloride (Potassium Chloride Er 20 Meq Tab.Er.Prt) 20 meq PO BID@0830,1630 [facility] Last Admin: 11/12/23 08:09 Dose: 20 meq Sertraline HCl (Sertraline Hcl 50 Mg Tablet) 50 mg PO DAILY [facility] Last Admin: 11/12/23 08:09 Dose: 50 mg Trazodone HCl (Trazodone Hcl 50 Mg Tablet) 50 mg PO BEDTIME MRX1 PRN PRN Reason: Insomnia Last Admin: 11/08/23 21:48 Dose: 50 mg Triamterene/Hydrochlorothiazide (Triamterene/Hctz 75/50 Tablet) 1 tab PO DAILY [facility]; Protocol Allergies Allergies Allergy/AdvReac Type Severity Reaction Status Date / Time aspirin Allergy Intermediate Shortness Verified 11/07/23 20:23 of Breath doxazosin Allergy Intermediate Swelling Verified 11/07/23 20:28 pravastatin Allergy Intermediate Muscle Pain Verified 11/07/23 20:26 prochlorperazine Allergy Intermediate Shortness Verified 11/07/23 20:27 of Breath spironolactone Allergy Intermediate Nausea Verified 11/07/23 20:23 Sulfa (Sulfonamide Allergy Intermediate Wheezing Verified 11/07/23 20:28 Antibiotics) labetalol Allergy Swelling Verified 11/07/23 20:25 Penicillins Allergy Shortness Verified 11/07/23 20:26 of Breath Iodinated Contrast Media AdvReac Severe Shortness Verified 11/07/23 20:24 of Breath Assessment & Plan Assessment & Plan (1) Bipolar disorder: Status: Acute Code(s): F31.9 - Bipolar disorder, unspecified Plan The patient is an elderly female with a past history of recent admission to [facility] for psychosis and carmen, readmitted for irritable behavior and disorganization with carmen. On interview the patient was grossly manic but easily redirectable. Hospital course: 11/10 started pt on Depakote 250mg on 11/09 nighttime since no sleep night before and talking non-stop. Pt slept ordreded Coenzyme Q10 200mg daily which she gets at home (sent script to [facility] pharm and added Pt's own med) Plan 1. Gather collateral information. 2. Keep on 15 minute checks. 3. Start Zyprexa 2.5 p.o. q.h.s. as a mood stabilizer antipsychotics. On November 08 we are increasing to 5 mg p.o. q.h.s. to target carmen and psychosis. November 11 we increased up to 7.5 p.o. q.h.s.. 4. Reassessment with results. 5. From November 11 we order for November 12 Depakote level and comprehensive metabolic panel fasting. Reason for continued inpatient stay Substantial Risk for: inability to function, rapid decompensation and med/psych decompensation Time Spent With Patient Time: Total time managing care of this patient today _20___ minutes.
--- NOTE | 2023-11-12 12:28 | PC.NURSE ---
Yasemin signed a CV on 11/12/23. CV placed in her chart.
[2023-11-12 12:50] LABS: Anion Gap 12 (12-20); Blood Urea Nitrogen 34 mg/dL (9-16); Calcium 10.3 mg/dL (8.4-10.2); Carbon Dioxide 23 mmol/L (22-29); Chloride 98 mmol/L (96-108); Creatinine Clr Calc Pharmacy 30.9; Estimated Glomerular Filt Rate 35; Glucose Random 94 mg/dL (60-115); Potassium 4.4 mmol/L (3.3-5.1); Sodium 129 mmol/L (135-145)
--- NOTE | 2023-11-12 14:20 | PC.NURSE ---
Even after one time dose of Maxzide ordered by hospitalist pt's BP remains high. Orthos taken and found to be supine: 167/68 (pulse 68), sitting 180/77 (pulse 72), and standing 153/92 (pulse 72). Hospitalist and psychiatrist made aware. Will encourage oral hydration up to 1.5L and recheck orthos at 1800 per hospitalist recommendation.
[2023-11-12] MEDS: Ondansetron ODT 4 MG TAB.RAPDIS TRANSLINGU (14:44)
[2023-11-12] MEDS: Clopidogrel Bisulfate 75 MG TABLET PO (16:14)
[2023-11-12 16:19] LABS: Osmolality, Serum 280 mosm/kg (281-305)
[2023-11-12 16:57] LABS: Osmolality Urine 229 mosm/kg (373-1093)
--- NOTE | 2023-11-12 19:15 | PC.NURSE ---
2nd set of orthos taken at 1800 and found to be: supine 161/70 (HR 82), sitting (HR 71), standing 155/65 (HR 77). Pt no longer symptomatic, not feeling dizzy anymore, and ambulating with steady gait. Hospitalist made aware via [employer].
[2023-11-12] MEDS: OLANZapine 7.5 MG TABLET PO (20:02)
[2023-11-12] MEDS: Losartan Potassium 50 MG TABLET 100 MG PO (20:02)
[2023-11-12] MEDS: Montelukast Sodium 10 MG TABLET PO (20:02)
[2023-11-12] MEDS: Atorvastatin Calcium 80 MG TABLET PO (20:02)
[2023-11-12] MEDS: LORazepam 1 MG TABLET PO (20:03)
[2023-11-12] MEDS: Divalproex Sodium Sprinkles 125 MG CAP.DR.SPR 500 MG PO (20:03)
[2023-11-13 07:38] LABS: Valproate 22.8 mcg/mL (50.0-100.0)
[2023-11-13 07:51] LABS: Alanine Aminotransferase 36 U/L (0-31); Albumin Level 3.1 g/dL (3.5-5.0); Alkaline Phosphatase 68 U/L (39-117); Anion Gap 9 (12-20); Aspartate Amino Transferase 36 U/L (5-31); Bilirubin Total 0.3 mg/dL (0.0-1.0); Blood Urea Nitrogen 29 mg/dL (9-16); Calcium 9.2 mg/dL (8.4-10.2); Carbon Dioxide 25 mmol/L (22-29); Chloride 101 mmol/L (96-108); Creatinine Clr Calc Pharmacy 32.4; Estimated Glomerular Filt Rate 37; Glucose Fasting 97 mg/dL (60-99); Potassium 3.7 mmol/L (3.3-5.1); Sodium 131 mmol/L (135-145); Total Protein 4.8 g/dL (6.5-8.0)
[2023-11-13 08:09] VITALS: BP 160/70; PULSE 70; RESP 18; TEMP 36.1; O2SAT 97
[2023-11-13] MEDS: Triamterene/HCTZ 75/50 TABLET 1 TAB PO (08:10)
[2023-11-13] MEDS: NIFEdipine ER 60 MG TAB.ER.24 120 MG PO (08:10)
[2023-11-13] MEDS: Sertraline HCL 50 MG TABLET PO (08:10)
[2023-11-13] MEDS: hydrALAZINE HCl 50 MG TABLET 100 MG PO ×3 (08:10→20:43)
[2023-11-13] MEDS: Potassium Chloride ER 20 MEQ TAB.ER.PRT PO ×2 (08:11→16:30)
[2023-11-13] MEDS: Fluticasone Propionate Nasal 16 GM SPRAY 2 SPRAY NOSTRIL-B (08:41)
[2023-11-13] MEDS: Divalproex Sodium Sprinkles 125 MG CAP.DR.SPR 500 MG PO ×2 (09:15→20:44)
--- NOTE | 2023-11-13 10:54 | HO.PSYCHPN ---
Subjective Subjective Date of Service: 11/13/23 Reason For Visit: Psychosis unspecified Subjective Notes: Conditional Voluntary Interim History: The nursing staff reported the patient has spent most the time in her bed, no behavioral issues. Even though the staff noticed that she is hyperverbal still hypomanic. The patient reported that the social human services assistants that she wants to go back to her local hospital to continue medical care. At this moment she is somatically preoccupied. Today we checked her Depakote level was 22.6 we increase Depakote to 500 mg p.o. b.i.d.. On interview the patient denies new symptoms no side-effects. Mental Status Exam Mental Status Exam Patient Appearance: Appropriate Patient Orientation: Person and Situation Level of Consciousness: Awake and Appropriate Patient Behavior: Guarded and Passive Mood Description: Withdrawn Affect Description: Constricted Patient Cognition Impaired: Yes Ability to Follow Directions: Good Speech Pattern: Clear Hallucinations: None Delusions: Not Present Thought Process: Distracted and Slowed Thinking Thought Content: positive for [place] and positive for Poverty of Content Judgement: Fair Diagnostics Vital Signs (24Hr): Vital Signs - 24 hr 11/12/23 12:40 11/12/23 14:44 11/12/23 18:00 Temperature Pulse Rate 82 Respiratory Rate Blood Pressure 178/77 H 167/68 H 161/70 H Pulse Oximetry Oxygen Delivery Method 11/12/23 18:57 11/12/23 18:59 11/12/23 19:59 Temperature Pulse Rate 71 77 68 Respiratory Rate 18 Blood Pressure 154/67 H 155/65 H 173/76 H Pulse Oximetry 98 Oxygen Delivery Method Room Air 11/12/23 20:02 11/12/23 20:03 11/13/23 08:09 Temperature 96.9 F Pulse Rate 70 Respiratory Rate 18 Blood Pressure 173/76 H 173/76 H 160/70 H Pulse Oximetry 97 Oxygen Delivery Method Room Air BMI result Body Mass Index 21.6 Labs 11/13/23 07:09 Labs: Laboratory Results - last 48 hr 11/12/23 11/12/23 11/12/23 11:54 14:47 15:47 Sodium 129 L Potassium 4.4 Chloride 98 Carbon Dioxide 23 Anion Gap 12 BUN 34 H Creatinine 1.45 H Estim Creat Clear Calc 30.9 Estimated GFR 35 Random Glucose 94 Fasting Glucose Osmolality 280 L Calcium 10.3 H Total Bilirubin AST ALT Alkaline Phosphatase Total Protein Albumin Urine Osmolality 229 L Ur Random Sodium 43.0 Valproic Acid 11/13/23 07:09 Sodium 131 L Potassium 3.7 Chloride 101 Carbon Dioxide 25 Anion Gap 9 L BUN 29 H Creatinine 1.38 Estim Creat Clear Calc 32.4 Estimated GFR 37 Random Glucose Fasting Glucose 97 Osmolality Calcium 9.2 D Total Bilirubin 0.3 AST 36 H ALT 36 H Alkaline Phosphatase 68 Total Protein 4.8 L Albumin 3.1 L Urine Osmolality Ur Random Sodium Valproic Acid 22.8 L Medications Medications Current Medications Acetaminophen (Acetaminophen 325 Mg Tablet) 650 mg PO Q6H PRN PRN Reason: Headache/Pain Mild Scale (1-3) Last Admin: 11/12/23 09:47 Dose: 650 mg Al Hydroxide/Mg Hydroxide (Magnesium Hydrox/Alum Hydrox 30 Ml Oral.Susp) 30 ml PO Q6H PRN PRN Reason: Heartburn/Nausea Albuterol Sulfate (Albuterol Sulfate 90 Mcg 8 Gm Inhaler) 2 puff INHALE Q4H PRN PRN Reason: Shortness Of Breath Or Wheezing Last Admin: 11/10/23 17:14 Dose: 2 puff Atorvastatin Calcium (Atorvastatin Calcium 80 Mg Tablet) 80 mg PO BEDTIME [facility] Last Admin: 11/12/23 20:02 Dose: 80 mg Clopidogrel Bisulfate (Clopidogrel Bisulfate 75 Mg Tablet) 75 mg PO DAILY@1630 [facility] Last Admin: 11/12/23 16:14 Dose: 75 mg Divalproex Sodium (Divalproex Sodium Sprinkles 125 Mg ) 500 mg PO BID [facility] Last Admin: 11/13/23 09:17 Dose: Not Given Fluticasone Propionate (Fluticasone Propionate Nasal 16 Gm [place]) 2 spray NOSTRIL-B DAILY [facility] Last Admin: 11/13/23 08:41 Dose: 2 spray Hydralazine HCl (Hydralazine Hcl 50 Mg Tablet) 100 mg PO TID [facility]; Protocol Last Admin: 11/13/23 08:10 Dose: 100 mg Hydroxyzine HCl (Hydroxyzine Hcl 25 Mg Tablet) 25 mg PO Q6H PRN PRN Reason: Anxiety Last Admin: 11/11/23 21:05 Dose: 25 mg Lorazepam (Lorazepam 1 Mg Tablet) 1 mg PO BEDTIME [facility] Last Admin: 11/12/23 20:03 Dose: 1 mg Losartan Potassium (Losartan Potassium 50 Mg Tablet) 100 mg PO BEDTIME [facility]; Protocol Last Admin: 11/12/23 20:02 Dose: 100 mg Magnesium Hydroxide (Milk Of Magnesia 30 Ml Oral.Susp) 30 ml PO DAILY PRN PRN Reason: Constipation Montelukast Sodium (Montelukast Sodium 10 Mg Tablet) 10 mg PO BEDTIME [facility] Last Admin: 11/12/23 20:02 Dose: 10 mg Nifedipine (Nifedipine Er 60 Mg Tab.Er.24) 120 mg PO DAILY [facility]; Protocol Last Admin: 11/13/23 08:10 Dose: 120 mg Non-Formulary Medication (Ruxolitinib [Jakafi]) 5 mg PO BID [facility] Patient Own Med Coenzyme Q10 100mg Cap 2 each PO DAILY [facility] Last Admin: 11/13/23 08:16 Dose: Not Given Olanzapine (Olanzapine 7.5 Mg Tablet) 7.5 mg PO BEDTIME [facility] Last Admin: 11/12/23 20:02 Dose: 7.5 mg Potassium Chloride (Potassium Chloride Er 20 Meq Tab.Er.Prt) 20 meq PO BID@0830,1630 [facility] Last Admin: 11/13/23 08:11 Dose: 20 meq Sertraline HCl (Sertraline Hcl 50 Mg Tablet) 50 mg PO DAILY [facility] Last Admin: 11/13/23 08:10 Dose: 50 mg Trazodone HCl (Trazodone Hcl 50 Mg Tablet) 50 mg PO BEDTIME MRX1 PRN PRN Reason: Insomnia Last Admin: 11/08/23 21:48 Dose: 50 mg Triamterene/Hydrochlorothiazide (Triamterene/Hctz 75/50 Tablet) 1 tab PO DAILY [facility]; Protocol Last Admin: 11/13/23 08:10 Dose: 1 tab Allergies Allergies Allergy/AdvReac Type Severity Reaction Status Date / Time aspirin Allergy Intermediate Shortness Verified 11/07/23 20:23 of Breath doxazosin Allergy Intermediate Swelling Verified 11/07/23 20:28 pravastatin Allergy Intermediate Muscle Pain Verified 11/07/23 20:26 prochlorperazine Allergy Intermediate Shortness Verified 11/07/23 20:27 of Breath spironolactone Allergy Intermediate Nausea Verified 11/07/23 20:23 Sulfa (Sulfonamide Allergy Intermediate Wheezing Verified 11/07/23 20:28 Antibiotics) labetalol Allergy Swelling Verified 11/07/23 20:25 Penicillins Allergy Shortness Verified 11/07/23 20:26 of Breath Iodinated Contrast Media AdvReac Severe Shortness Verified 11/07/23 20:24 of Breath Assessment & Plan Assessment & Plan (1) Bipolar disorder: Status: Acute Code(s): F31.9 - Bipolar disorder, unspecified Plan The patient is an elderly female with a past history of recent admission to [facility] for psychosis and carmen, readmitted for irritable behavior and disorganization with carmen. On interview the patient was grossly manic but easily redirectable. Hospital course: 11/10 started pt on Depakote 250mg on 11/09 nighttime since no sleep night before and talking non-stop. Pt slept ordreded Coenzyme Q10 200mg daily which she gets at home (sent script to [facility] pharm and added Pt's own med) Plan 1. Gather collateral information. 2. Keep on 15 minute checks. 3. Start Zyprexa 2.5 p.o. q.h.s. as a mood stabilizer antipsychotics. On November 08 we are increasing to 5 mg p.o. q.h.s. to target carmen and psychosis. November 11 we increased up to 7.5 p.o. q.h.s.. 4. Reassessment with results. 5. From November 11 we order for November 12 Depakote level and comprehensive metabolic panel fasting. It came back with a subtherapeutic Depakote level. 6. Increase Depakote up to 500 mg p.o. b.i.d. November 12. Reason for continued inpatient stay Substantial Risk for: inability to function, rapid decompensation and med/psych decompensation Time Spent With Patient Time: Total time managing care of this patient today __20__ minutes.
[2023-11-13 15:20] VITALS: BP 180/79
[2023-11-13] MEDS: Clopidogrel Bisulfate 75 MG TABLET PO (16:30)
[2023-11-13 20:00] VITALS: BP 140/64; PULSE 85; RESP 18; TEMP 36.5; O2SAT 96
[2023-11-13] MEDS: OLANZapine 7.5 MG TABLET PO (20:44)
[2023-11-13] MEDS: Atorvastatin Calcium 80 MG TABLET PO (20:44)
[2023-11-13] MEDS: LORazepam 1 MG TABLET PO (20:44)
[2023-11-13] MEDS: Losartan Potassium 50 MG TABLET 100 MG PO (20:44)
[2023-11-13] MEDS: Montelukast Sodium 10 MG TABLET PO (20:44)
[2023-11-13] MEDS: COENZYME Q10 100 MG 2 EACH PO (20:47)
[2023-11-13] MEDS: Albuterol Sulfate 90 MCG 8 GM INHALER 2 PUFF INHALE (20:51)
[2023-11-13] MEDS: Acetaminophen 325 MG TABLET 650 MG PO (23:55)
[2023-11-13] MEDS: hydrOXYzine HCL 25 MG TABLET PO (23:55)
[2023-11-14 08:00] VITALS: BP 146/66; PULSE 82; RESP 18; TEMP 36.6; O2SAT 97
[2023-11-14] MEDS: hydrALAZINE HCl 50 MG TABLET 100 MG PO ×3 (08:12→20:49)
[2023-11-14] MEDS: Divalproex Sodium Sprinkles 125 MG CAP.DR.SPR 500 MG PO ×2 (08:12→20:50)
[2023-11-14] MEDS: Potassium Chloride ER 20 MEQ TAB.ER.PRT PO ×2 (08:13→16:22)
[2023-11-14] MEDS: Triamterene/HCTZ 75/50 TABLET 1 TAB PO (08:13)
[2023-11-14] MEDS: NIFEdipine ER 60 MG TAB.ER.24 120 MG PO (08:13)
[2023-11-14] MEDS: Sertraline HCL 50 MG TABLET PO (08:14)
[2023-11-14] MEDS: Fluticasone Propionate Nasal 16 GM SPRAY 2 SPRAY NOSTRIL-B (09:12)
--- NOTE | 2023-11-14 13:20 | P.PNPSI_ITS ---
Subjective Subjective Date of Service: 11/14/23 Reason For Visit: Psychosis unspecified Subjective Notes: Conditional Voluntary Interim History: The nursing staff reported the patient has refused to wear her Chaim stockings she complained of somatic symptoms he slept 3 hours. The occupational therapist reported that she is less hyperverbal but attending to groups. Today on interview the patient reported that she was feeling very sad because today is the anniversary of the of her . We review her list of medications and we are going to increase Zyprexa to 10 mg p.o. q.h.s. to target mood lability Mental Status Exam Mental Status Exam Patient Appearance: Well Grooomed and Appropriate Patient Orientation: Person and Situation Level of Consciousness: Awake and Appropriate Patient Behavior: Guarded and Passive Mood Description: Withdrawn Affect Description: Constricted Patient Cognition Impaired: Yes Ability to Follow Directions: Good Speech Pattern: Clear Hallucinations: None Thought Process: Linear Thought Content: positive for [place] and positive for Poverty of Content Judgement: Fair Diagnostics Vital Signs (24Hr): Vital Signs - 24 hr 11/13/23 15:20 11/13/23 20:00 11/14/23 08:00 Temperature 97.7 F 97.9 F Pulse Rate 85 82 Respiratory Rate 18 18 Blood Pressure 180/79 H 140/64 H 146/66 H Pulse Oximetry 96 97 Oxygen Delivery Method Room Air Room Air BMI result Body Mass Index 21.6 Labs 11/13/23 07:09 Labs: Laboratory Results - last 48 hr 11/12/23 11/12/23 11/13/23 14:47 15:47 07:09 Sodium 131 L Potassium 3.7 Chloride 101 Carbon Dioxide 25 Anion Gap 9 L BUN 29 H Creatinine 1.38 Estim Creat Clear Calc 32.4 Estimated GFR 37 Fasting Glucose 97 Osmolality 280 L Calcium 9.2 D Total Bilirubin 0.3 AST 36 H ALT 36 H Alkaline Phosphatase 68 Total Protein 4.8 L Albumin 3.1 L Urine Osmolality 229 L Ur Random Sodium 43.0 Valproic Acid 22.8 L Medications Medications Current Medications Acetaminophen (Acetaminophen 325 Mg Tablet) 650 mg PO Q6H PRN PRN Reason: Headache/Pain Mild Scale (1-3) Last Admin: 11/13/23 23:55 Dose: 650 mg Al Hydroxide/Mg Hydroxide (Magnesium Hydrox/Alum Hydrox 30 Ml Oral.Susp) 30 ml PO Q6H PRN PRN Reason: Heartburn/Nausea Albuterol Sulfate (Albuterol Sulfate 90 Mcg 8 Gm Inhaler) 2 puff INHALE Q4H PRN PRN Reason: Shortness Of Breath Or Wheezing Last Admin: 11/13/23 20:51 Dose: 2 puff Atorvastatin Calcium (Atorvastatin Calcium 80 Mg Tablet) 80 mg PO BEDTIME [facility] Last Admin: 11/13/23 20:44 Dose: 80 mg Clopidogrel Bisulfate (Clopidogrel Bisulfate 75 Mg Tablet) 75 mg PO DAILY@1630 [facility] Last Admin: 11/13/23 16:30 Dose: 75 mg Divalproex Sodium (Divalproex Sodium Sprinkles 125 Mg ) 500 mg PO BID [facility] Last Admin: 11/14/23 08:12 Dose: 500 mg Fluticasone Propionate (Fluticasone Propionate Nasal 16 Gm [place]) 2 spray NOSTRIL-B DAILY [facility] Last Admin: 11/14/23 09:12 Dose: 2 spray Hydralazine HCl (Hydralazine Hcl 50 Mg Tablet) 100 mg PO TID [facility]; Protocol Last Admin: 11/14/23 08:12 Dose: 100 mg Hydroxyzine HCl (Hydroxyzine Hcl 25 Mg Tablet) 25 mg PO Q6H PRN PRN Reason: Anxiety Last Admin: 11/13/23 23:55 Dose: 25 mg Lorazepam (Lorazepam 1 Mg Tablet) 1 mg PO BEDTIME [facility] Last Admin: 11/13/23 20:44 Dose: 1 mg Losartan Potassium (Losartan Potassium 50 Mg Tablet) 100 mg PO BEDTIME [facility]; Protocol Last Admin: 11/13/23 20:44 Dose: 100 mg Magnesium Hydroxide (Milk Of Magnesia 30 Ml Oral.Susp) 30 ml PO DAILY PRN PRN Reason: Constipation Montelukast Sodium (Montelukast Sodium 10 Mg Tablet) 10 mg PO BEDTIME [facility] Last Admin: 11/13/23 20:44 Dose: 10 mg Nifedipine (Nifedipine Er 60 Mg Tab.Er.24) 120 mg PO DAILY [facility]; Protocol Last Admin: 11/14/23 08:13 Dose: 120 mg Non-Formulary Medication (Ruxolitinib [Jakafi]) 5 mg PO BID [facility] Pt Own Coenzyme Q10 (100 Mg) 2 each PO BEDTIME [facility] Last Admin: 11/13/23 20:47 Dose: 2 each Olanzapine (Olanzapine 10 Mg Tablet) 10 mg PO BEDTIME [facility] Potassium Chloride (Potassium Chloride Er 20 Meq Tab.Er.Prt) 20 meq PO BID@0830,1630 [facility] Last Admin: 11/14/23 08:13 Dose: 20 meq Sertraline HCl (Sertraline Hcl 50 Mg Tablet) 50 mg PO DAILY [facility] Last Admin: 11/14/23 08:14 Dose: 50 mg Trazodone HCl (Trazodone Hcl 50 Mg Tablet) 50 mg PO BEDTIME MRX1 PRN PRN Reason: Insomnia Last Admin: 11/08/23 21:48 Dose: 50 mg Triamterene/Hydrochlorothiazide (Triamterene/Hctz 75/50 Tablet) 1 tab PO DAILY [facility]; Protocol Last Admin: 11/14/23 08:13 Dose: 1 tab Allergies Allergies Allergy/AdvReac Type Severity Reaction Status Date / Time aspirin Allergy Intermediate Shortness Verified 11/07/23 20:23 of Breath doxazosin Allergy Intermediate Swelling Verified 11/07/23 20:28 pravastatin Allergy Intermediate Muscle Pain Verified 11/07/23 20:26 prochlorperazine Allergy Intermediate Shortness Verified 11/07/23 20:27 of Breath spironolactone Allergy Intermediate Nausea Verified 11/07/23 20:23 Sulfa (Sulfonamide Allergy Intermediate Wheezing Verified 11/07/23 20:28 Antibiotics) labetalol Allergy Swelling Verified 11/07/23 20:25 Penicillins Allergy Shortness Verified 11/07/23 20:26 of Breath Iodinated Contrast Media AdvReac Severe Shortness Verified 11/07/23 20:24 of Breath Assessment & Plan Assessment & Plan (1) Bipolar disorder: Status: Acute Code(s): F31.9 - Bipolar disorder, unspecified Plan The patient is an elderly female with a past history of recent admission to [facility] for psychosis and carmen, readmitted for irritable behavior and disorganization with carmen. On interview the patient was grossly manic but easily redirectable. Hospital course: 11/10 started pt on Depakote 250mg on 11/09 nighttime since no sleep night before and talking non-stop. Pt slept ordreded Coenzyme Q10 200mg daily which she gets at home (sent script to [facility] and added Pt's own med) Plan 1. Gather collateral information. 2. Keep on 15 minute checks. 3. Start Zyprexa 2.5 p.o. q.h.s. as a mood stabilizer antipsychotics. On November 08 we are increasing to 5 mg p.o. q.h.s. to target carmen and psychosis. November 11 we increased up to 7.5 p.o. q.h.s. on November 13 we increased Zyprexa to 10 mg p.o. q.h.s.. 4. Reassessment with results. 5. From November 11 we order for November 12 Depakote level and comprehensive metabolic panel fasting. It came back with a subtherapeutic Depakote level. 6. Increase Depakote up to 500 mg p.o. b.i.d. November 12. Reason for continued inpatient stay Substantial Risk for: inability to function, rapid decompensation and med/psych decompensation Time Spent With Patient Time: Total time managing care of this patient today __20__ minutes.
[2023-11-14 15:13] VITALS: BP 180/77
[2023-11-14] MEDS: Clopidogrel Bisulfate 75 MG TABLET PO (16:22)
[2023-11-14] MEDS: Albuterol Sulfate 90 MCG 8 GM INHALER 2 PUFF INHALE (16:55)
[2023-11-14 20:00] VITALS: BP 181/86; PULSE 82; RESP 18; TEMP 36.4; O2SAT 98
[2023-11-14 20:49] VITALS: BP 181/86
[2023-11-14] MEDS: Atorvastatin Calcium 80 MG TABLET PO (20:49)
[2023-11-14] MEDS: Losartan Potassium 50 MG TABLET 100 MG PO (20:49)
[2023-11-14] MEDS: LORazepam 1 MG TABLET PO (20:49)
[2023-11-14] MEDS: Montelukast Sodium 10 MG TABLET PO (20:49)
[2023-11-14] MEDS: OLANZapine 10 MG TABLET PO (20:50)
[2023-11-14] MEDS: COENZYME Q10 100 MG 2 EACH PO (20:57)
[2023-11-14 22:07] LABS: Basophils Percent Auto 0.4 % (0-2); Eosinophils Absolute Auto 0.2 X10*3/uL (0.0-0.4); Eosinophils Percent Auto 2.3 % (0-4); Hemoglobin 9.1 g/dl (12.0-16.0); Imm Gran Abs Auto 0.04 X10*3/uL (0.00-0.03); Imm Gran Pct Auto 0.6 % (0.0-0.4); Lymphocytes Absolute Auto 0.7 X10*3/uL (1.2-4.9); Lymphocytes Percent Auto 9.5 % (20-40); MANUAL DIFF FLAG NO; Mean Corpuscular Hemoglobin 29.7 pg (27.0-33.0); Mean Platelet Volume 8.8 fL (9.4-12.3); Monocytes Absolute Auto 0.8 X10*3/uL (0.1-1.2); Monocytes Percent Auto 11.6 % (2-11); Neutrophils Absolute Auto 5.2 x10*3/uL (2.0-8.3); Neutrophils Percent Auto 75.6 % (45-73); Platelet Count 392 X10*3/uL (160-400); Red Blood Count 3.06 X10*6/uL (4.20-5.50); Red Cell Distribution Width 14.2 % (11.0-16.0); White Blood Count 6.9 X10*3/uL (4.8-10.8)
[2023-11-14] MEDS: Acetaminophen 325 MG TABLET 650 MG PO (22:16)
[2023-11-14] MEDS: RUXOLITINIB 5 MG 5 EACH PO (22:16)
[2023-11-15] MEDS: Albuterol Sulfate 90 MCG 8 GM INHALER 2 PUFF INHALE ×2 (03:44→15:41)
[2023-11-15 07:00] VITALS: BMI 24.4
[2023-11-15 07:50] VITALS: BP 180/80; PULSE 75; RESP 18; TEMP 36.7; O2SAT 99
[2023-11-15] MEDS: Potassium Chloride ER 20 MEQ TAB.ER.PRT PO ×2 (08:20→16:35)
[2023-11-15] MEDS: NIFEdipine ER 60 MG TAB.ER.24 120 MG PO (08:20)
[2023-11-15] MEDS: hydrALAZINE HCl 50 MG TABLET 100 MG PO ×3 (08:20→20:22)
[2023-11-15] MEDS: Divalproex Sodium Sprinkles 125 MG CAP.DR.SPR 500 MG PO ×2 (08:20→20:20)
[2023-11-15] MEDS: Sertraline HCL 50 MG TABLET PO (08:20)
[2023-11-15] MEDS: Fluticasone Propionate Nasal 16 GM SPRAY 2 SPRAY NOSTRIL-B (08:21)
[2023-11-15] MEDS: RUXOLITINIB 5 MG 5 EACH PO (08:21)
[2023-11-15] MEDS: Triamterene/HCTZ 75/50 TABLET 1 TAB PO (08:23)
[2023-11-15 08:33] LABS: Anion Gap 10 (12-20); Blood Urea Nitrogen 29 mg/dL (9-16); Carbon Dioxide 24 mmol/L (22-29); Chloride 100 mmol/L (96-108); Creatinine Clr Calc Pharmacy 30.3; Estimated Glomerular Filt Rate 34; Glucose Random 94 mg/dL (60-115); Potassium 3.5 mmol/L (3.3-5.1); Sodium 130 mmol/L (135-145)
--- NOTE | 2023-11-15 11:32 | HO.PSYCHPN ---
Subjective Subjective Date of Service: 11/15/23 Reason For Visit: Psychosis unspecified Subjective Notes: Conditional Voluntary Interim History: The nursing staff reported the patient had been compliant with treatment, she looks less manic. The occupational therapist reported that she participates in groups still with mild fast speech but moved more regulated. On interview the patient denies new symptoms she feels better. She is going to be discharged next Sunday. Mental Status Exam Mental Status Exam Patient Appearance: Well Grooomed and Appropriate Patient Orientation: Person and Situation Level of Consciousness: Awake and Appropriate Patient Behavior: Guarded and Passive Mood Description: Withdrawn Affect Description: Constricted Patient Cognition Impaired: Yes Ability to Follow Directions: Good Speech Pattern: Clear Hallucinations: None Delusions: Not Present Thought Process: Racing and Distracted Thought Content: positive for [place] and positive for Circumstantial Judgement: Fair Diagnostics Vital Signs (24Hr): Vital Signs - 24 hr 11/14/23 15:13 11/14/23 20:00 11/14/23 20:49 Temperature 97.5 F Pulse Rate 82 Respiratory Rate 18 Blood Pressure 180/77 H 181/86 H 181/86 H Pulse Oximetry 98 Oxygen Delivery Method Room Air 11/14/23 20:49 11/15/23 07:50 Temperature 98.1 F Pulse Rate 75 Respiratory Rate 18 Blood Pressure 181/86 H 180/80 H Pulse Oximetry 99 Oxygen Delivery Method Room Air BMI result Body Mass Index 21.6 Labs 11/14/23 21:52 11/15/23 07:52 Labs: Laboratory Results - last 48 hr 11/14/23 11/15/23 21:52 07:52 WBC 6.9 RBC 3.06 L Hgb 9.1 L Hct 26.0 L MCV 85.0 MCH 29.7 MCHC 35.0 RDW 14.2 Plt Count 392 MPV 8.8 L Immature Gran % (Auto) 0.6 H Neut % (Auto) 75.6 H Lymph % (Auto) 9.5 L [place] % (Auto) 11.6 H Eos % (Auto) 2.3 Baso % (Auto) 0.4 Lymph # (Auto) 0.7 L [place] # (Auto) 0.8 Eos # (Auto) 0.2 Baso # (Auto) 0.0 Abs Immat Gran (auto) 0.04 H Absolute Neuts (auto) 5.2 Absolute Nucleated RBC 0.000 Nucleated RBC % (auto) 0.0 Sodium 130 L Potassium 3.5 Chloride 100 Carbon Dioxide 24 Anion Gap 10 L BUN 29 H Creatinine 1.48 H Estim Creat Clear Calc 30.3 Estimated GFR 34 Random Glucose 94 Calcium 9.0 Hold Yellow Top See Note Medications Medications Current Medications Acetaminophen (Acetaminophen 325 Mg Tablet) 650 mg PO Q6H PRN PRN Reason: Headache/Pain Mild Scale (1-3) Last Admin: 11/14/23 22:16 Dose: 650 mg Al Hydroxide/Mg Hydroxide (Magnesium Hydrox/Alum Hydrox 30 Ml Oral.Susp) 30 ml PO Q6H PRN PRN Reason: Heartburn/Nausea Albuterol Sulfate (Albuterol Sulfate 90 Mcg 8 Gm Inhaler) 2 puff INHALE Q4H PRN PRN Reason: Shortness Of Breath Or Wheezing Last Admin: 11/15/23 03:44 Dose: 2 puff Atorvastatin Calcium (Atorvastatin Calcium 80 Mg Tablet) 80 mg PO BEDTIME [facility] Last Admin: 11/14/23 20:49 Dose: 80 mg Clopidogrel Bisulfate (Clopidogrel Bisulfate 75 Mg Tablet) 75 mg PO DAILY@1630 [facility] Last Admin: 11/14/23 16:22 Dose: 75 mg Divalproex Sodium (Divalproex Sodium Sprinkles 125 Mg ) 500 mg PO BID [facility] Last Admin: 11/15/23 08:20 Dose: 500 mg Fluticasone Propionate (Fluticasone Propionate Nasal 16 Gm [place]) 2 spray NOSTRIL-B DAILY [facility] Last Admin: 11/15/23 08:21 Dose: 2 spray Hydralazine HCl (Hydralazine Hcl 50 Mg Tablet) 100 mg PO TID [facility]; Protocol Last Admin: 11/15/23 08:20 Dose: 100 mg Hydroxyzine HCl (Hydroxyzine Hcl 25 Mg Tablet) 25 mg PO Q6H PRN PRN Reason: Anxiety Last Admin: 11/13/23 23:55 Dose: 25 mg Lorazepam (Lorazepam 1 Mg Tablet) 1 mg PO BEDTIME [facility] Last Admin: 11/14/23 20:49 Dose: 1 mg Losartan Potassium (Losartan Potassium 50 Mg Tablet) 100 mg PO BEDTIME [facility]; Protocol Last Admin: 11/14/23 20:49 Dose: 100 mg Magnesium Hydroxide (Milk Of Magnesia 30 Ml Oral.Susp) 30 ml PO DAILY PRN PRN Reason: Constipation Montelukast Sodium (Montelukast Sodium 10 Mg Tablet) 10 mg PO BEDTIME [facility] Last Admin: 11/14/23 20:49 Dose: 10 mg Nifedipine (Nifedipine Er 60 Mg Tab.Er.24) 120 mg PO DAILY [facility]; Protocol Last Admin: 11/15/23 08:20 Dose: 120 mg Pt Own Coenzyme Q10 (100 Mg) 2 each PO BEDTIME [facility] Last Admin: 11/14/23 20:57 Dose: 2 each Pt Own (Ruxolitinib [Jakafi] 5 Mg Tablet ) 5 mg PO DAILY [facility] Olanzapine (Olanzapine 10 Mg Tablet) 10 mg PO BEDTIME [facility] Last Admin: 11/14/23 20:50 Dose: 10 mg Potassium Chloride (Potassium Chloride Er 20 Meq Tab.Er.Prt) 20 meq PO BID@0830,1630 [facility] Last Admin: 11/15/23 08:20 Dose: 20 meq Sertraline HCl (Sertraline Hcl 50 Mg Tablet) 50 mg PO DAILY [facility] Last Admin: 11/15/23 08:20 Dose: 50 mg Trazodone HCl (Trazodone Hcl 50 Mg Tablet) 50 mg PO BEDTIME MRX1 PRN PRN Reason: Insomnia Last Admin: 11/08/23 21:48 Dose: 50 mg Triamterene/Hydrochlorothiazide (Triamterene/Hctz 75/50 Tablet) 1 tab PO DAILY [facility]; Protocol Last Admin: 11/15/23 08:23 Dose: 1 tab Allergies Allergies Allergy/AdvReac Type Severity Reaction Status Date / Time aspirin Allergy Intermediate Shortness Verified 11/07/23 20:23 of Breath doxazosin Allergy Intermediate Swelling Verified 11/07/23 20:28 pravastatin Allergy Intermediate Muscle Pain Verified 11/07/23 20:26 prochlorperazine Allergy Intermediate Shortness Verified 11/07/23 20:27 of Breath spironolactone Allergy Intermediate Nausea Verified 11/07/23 20:23 Sulfa (Sulfonamide Allergy Intermediate Wheezing Verified 11/07/23 20:28 Antibiotics) labetalol Allergy Swelling Verified 11/07/23 20:25 Penicillins Allergy Shortness Verified 11/07/23 20:26 of Breath Iodinated Contrast Media AdvReac Severe Shortness Verified 11/07/23 20:24 of Breath Assessment & Plan Assessment & Plan (1) Bipolar disorder: Status: Acute Code(s): F31.9 - Bipolar disorder, unspecified Plan The patient is an elderly female with a past history of recent admission to [facility] for psychosis and carmen, readmitted for irritable behavior and disorganization with carmen. On interview the patient was grossly manic but easily redirectable. Hospital course: 11/10 started pt on Depakote 250mg on 11/09 nighttime since no sleep night before and talking non-stop. Pt slept ordreded Coenzyme Q10 200mg daily which she gets at home ([place] script [place] [facility] and added Pt's own med) Plan 1. Gather collateral information. 2. Keep on 15 minute checks. 3. Start Zyprexa 2.5 p.o. q.h.s. as a mood stabilizer antipsychotics. On November 08 we are increasing to 5 mg p.o. q.h.s. to target carmen and psychosis. November 11 we increased up to 7.5 p.o. q.h.s. on November 13 we increased Zyprexa to 10 mg p.o. q.h.s.. 4. Reassessment with results. 5. From November 11 we order for November 12 Depakote level and comprehensive metabolic panel fasting. It came back with a subtherapeutic Depakote level. 6. Increase Depakote up to 500 mg p.o. b.i.d. November 12. Reason for continued inpatient stay Substantial Risk for: inability to function, rapid decompensation and med/psych decompensation Time Spent With Patient Time: Total time managing care of this patient today __20__ minutes.
[2023-11-15 15:08] VITALS: BP 142/73
[2023-11-15] MEDS: Clopidogrel Bisulfate 75 MG TABLET PO (16:36)
[2023-11-15 20:00] VITALS: BP 150/70; PULSE 85; RESP 16; TEMP 36.6; O2SAT 98
[2023-11-15 20:19] VITALS: BP 150/70
[2023-11-15] MEDS: Losartan Potassium 50 MG TABLET 100 MG PO (20:19)
[2023-11-15 20:22] VITALS: BP 150/70
[2023-11-15] MEDS: OLANZapine 10 MG TABLET PO (20:22)
[2023-11-15] MEDS: traZODone HCL 50 MG TABLET PO (20:22)
[2023-11-15] MEDS: Atorvastatin Calcium 80 MG TABLET PO (20:23)
[2023-11-15] MEDS: LORazepam 1 MG TABLET PO (20:23)
[2023-11-15] MEDS: Montelukast Sodium 10 MG TABLET PO (20:23)
[2023-11-15] MEDS: COENZYME Q10 100 MG 2 EACH PO (20:51)
[2023-11-16 08:32] LABS: Anion Gap 10 (12-20); Blood Urea Nitrogen 29 mg/dL (9-16); Calcium 9.2 mg/dL (8.4-10.2); Carbon Dioxide 24 mmol/L (22-29); Chloride 102 mmol/L (96-108); Creatinine Clr Calc Pharmacy 32.4; Estimated Glomerular Filt Rate 37; Glucose Random 91 mg/dL (60-115); Potassium 3.9 mmol/L (3.3-5.1); Sodium 132 mmol/L (135-145)
[2023-11-16 08:35] VITALS: BP 138/60; PULSE 72; RESP 18; TEMP 36.6; O2SAT 96
[2023-11-16] MEDS: hydrALAZINE HCl 50 MG TABLET 100 MG PO ×3 (08:40→19:56)
[2023-11-16] MEDS: Divalproex Sodium Sprinkles 125 MG CAP.DR.SPR 500 MG PO ×2 (08:40→19:54)
[2023-11-16] MEDS: NIFEdipine ER 60 MG TAB.ER.24 120 MG PO (08:40)
[2023-11-16] MEDS: Sertraline HCL 50 MG TABLET PO (08:40)
[2023-11-16] MEDS: Potassium Chloride ER 20 MEQ TAB.ER.PRT PO ×2 (08:40→15:32)
[2023-11-16] MEDS: Triamterene/HCTZ 75/50 TABLET 1 TAB PO (08:41)
[2023-11-16] MEDS: RUXOLITINIB 5 MG 5 EACH PO (08:46)
[2023-11-16] MEDS: Fluticasone Propionate Nasal 16 GM SPRAY 2 SPRAY NOSTRIL-B (08:50)
--- NOTE | 2023-11-16 12:02 | HO.PSYCHPN ---
Subjective Subjective Date of Service: 11/16/23 Reason For Visit: Psychosis unspecified Subjective Notes: Conditional Voluntary Interim History: The nursing staff reported the patient has been compliant with medication, less hypomanic and no evidence of side effects. On interview the patient denies new symptoms, she will be discharged next Sunday. She complained of over-sedation so we are going to lower Depakote the morning Mental Status Exam Mental Status Exam Patient Appearance: Well Grooomed and Appropriate Patient Orientation: Person and Situation Level of Consciousness: Awake and Appropriate Patient Behavior: Guarded and Passive Mood Description: Withdrawn Affect Description: Constricted Patient Cognition Impaired: Yes Ability to Follow Directions: Good Speech Pattern: Rapid Hallucinations: None Delusions: Not Present Thought Process: Racing Thought Content: positive for [place] and positive for [place] of Content Judgement: Fair Diagnostics Vital Signs (24Hr): Vital Signs - 24 hr 11/15/23 15:08 11/15/23 20:00 11/15/23 20:19 Temperature 97.8 F Pulse Rate 85 Respiratory Rate 16 Blood Pressure 142/73 H 150/70 H 150/70 H Pulse Oximetry 98 Oxygen Delivery Method Room Air 11/15/23 20:22 11/16/23 08:35 Temperature 97.9 F Pulse Rate 72 Respiratory Rate 18 Blood Pressure 150/70 H 138/60 Pulse Oximetry 96 Oxygen Delivery Method Room Air BMI result Body Mass Index 24.4 Labs 11/14/23 21:52 11/16/23 08:11 Labs: Laboratory Results - last 48 hr 11/14/23 11/15/23 11/16/23 21:52 07:52 08:11 WBC 6.9 RBC 3.06 L Hgb 9.1 L Hct 26.0 L MCV 85.0 MCH 29.7 MCHC 35.0 RDW 14.2 Plt Count 392 MPV 8.8 L Immature Gran % (Auto) 0.6 H Neut % (Auto) 75.6 H Lymph % (Auto) 9.5 L [place] % (Auto) 11.6 H Eos % (Auto) 2.3 Baso % (Auto) 0.4 Lymph # (Auto) 0.7 L [place] # (Auto) 0.8 Eos # (Auto) 0.2 Baso # (Auto) 0.0 Abs Immat Gran (auto) 0.04 H Absolute Neuts (auto) 5.2 Absolute Nucleated RBC 0.000 Nucleated RBC % (auto) 0.0 Hold Purple Top SEE NOTE Sodium 130 L 132 L Potassium 3.5 3.9 Chloride 100 102 Carbon Dioxide 24 24 Anion Gap 10 L 10 L BUN 29 H 29 H Creatinine 1.48 H 1.38 Estim Creat Clear Calc 30.3 32.4 Estimated GFR 34 37 Random Glucose 94 91 Calcium 9.0 9.2 Hold Yellow Top See Note Medications Medications Current Medications Acetaminophen (Acetaminophen 325 Mg Tablet) 650 mg PO Q6H PRN PRN Reason: Headache/Pain Mild Scale (1-3) Last Admin: 11/14/23 22:16 Dose: 650 mg Al Hydroxide/Mg Hydroxide (Magnesium Hydrox/Alum Hydrox 30 Ml Oral.Susp) 30 ml PO Q6H PRN PRN Reason: Heartburn/Nausea Albuterol Sulfate (Albuterol Sulfate 90 Mcg 8 Gm Inhaler) 2 puff INHALE Q4H PRN PRN Reason: Shortness Of Breath Or Wheezing Last Admin: 11/15/23 15:41 Dose: 2 puff Atorvastatin Calcium (Atorvastatin Calcium 80 Mg Tablet) 80 mg PO BEDTIME [facility] Last Admin: 11/15/23 20:23 Dose: 80 mg Clopidogrel Bisulfate (Clopidogrel Bisulfate 75 Mg Tablet) 75 mg PO DAILY@1630 [facility] Last Admin: 11/15/23 16:36 Dose: 75 mg Divalproex Sodium (Divalproex Sodium Sprinkles 125 Mg ) 500 mg PO BID [facility] Last Admin: 11/16/23 08:40 Dose: 500 mg Fluticasone Propionate (Fluticasone Propionate Nasal 16 Gm [place]) 2 spray NOSTRIL-B DAILY [facility] Last Admin: 11/16/23 08:50 Dose: 2 spray Hydralazine HCl (Hydralazine Hcl 50 Mg Tablet) 100 mg PO TID [facility]; Protocol Last Admin: 11/16/23 08:40 Dose: 100 mg Hydroxyzine HCl (Hydroxyzine Hcl 25 Mg Tablet) 25 mg PO Q6H PRN PRN Reason: Anxiety Last Admin: 11/13/23 23:55 Dose: 25 mg Lorazepam (Lorazepam 1 Mg Tablet) 1 mg PO BEDTIME [facility] Last Admin: 11/15/23 20:23 Dose: 1 mg Losartan Potassium (Losartan Potassium 50 Mg Tablet) 100 mg PO BEDTIME [facility]; Protocol Last Admin: 11/15/23 20:19 Dose: 100 mg Magnesium Hydroxide (Milk Of Magnesia 30 Ml Oral.Susp) 30 ml PO DAILY PRN PRN Reason: Constipation Montelukast Sodium (Montelukast Sodium 10 Mg Tablet) 10 mg PO BEDTIME [facility] Last Admin: 11/15/23 20:23 Dose: 10 mg Nifedipine (Nifedipine Er 60 Mg Tab.Er.24) 120 mg PO DAILY [facility]; Protocol Last Admin: 11/16/23 08:40 Dose: 120 mg Pt Own Coenzyme Q10 (100 Mg) 2 each PO BEDTIME [facility] Last Admin: 11/15/23 20:51 Dose: 2 each Pt Own (Ruxolitinib [Jakafi] 5 Mg Tablet ) 5 mg PO DAILY [facility] Last Admin: 11/16/23 08:46 Dose: 5 mg Olanzapine (Olanzapine 10 Mg Tablet) 10 mg PO BEDTIME [facility] Last Admin: 11/15/23 20:22 Dose: 10 mg Potassium Chloride (Potassium Chloride Er 20 Meq Tab.Er.Prt) 20 meq PO BID@0830,1630 [facility] Last Admin: 11/16/23 08:40 Dose: 20 meq Sertraline HCl (Sertraline Hcl 50 Mg Tablet) 50 mg PO DAILY [facility] Last Admin: 11/16/23 08:40 Dose: 50 mg Trazodone HCl (Trazodone Hcl 50 Mg Tablet) 50 mg PO BEDTIME MRX1 PRN PRN Reason: Insomnia Last Admin: 11/15/23 20:22 Dose: 50 mg Triamterene/Hydrochlorothiazide (Triamterene/Hctz 75/50 Tablet) 1 tab PO DAILY [facility]; Protocol Last Admin: 11/16/23 08:41 Dose: 1 tab Allergies Allergies Allergy/AdvReac Type Severity Reaction Status Date / Time aspirin Allergy Intermediate Shortness Verified 11/07/23 20:23 of Breath doxazosin Allergy Intermediate Swelling Verified 11/07/23 20:28 pravastatin Allergy Intermediate Muscle Pain Verified 11/07/23 20:26 prochlorperazine Allergy Intermediate Shortness Verified 11/07/23 20:27 of Breath spironolactone Allergy Intermediate Nausea Verified 11/07/23 20:23 Sulfa (Sulfonamide Allergy Intermediate Wheezing Verified 11/07/23 20:28 Antibiotics) labetalol Allergy Swelling Verified 11/07/23 20:25 Penicillins Allergy Shortness Verified 11/07/23 20:26 of Breath Iodinated Contrast Media AdvReac Severe Shortness Verified 11/07/23 20:24 of Breath Assessment & Plan Assessment & Plan (1) Bipolar disorder: Status: Acute Code(s): F31.9 - Bipolar disorder, unspecified Plan The patient is an elderly female with a past history of recent admission to [facility] for psychosis and carmen, readmitted for irritable behavior and disorganization with carmen. On interview the patient was grossly manic but easily redirectable. Hospital course: 11/10 started pt on Depakote 250mg on 11/09 nighttime since no sleep night before and talking non-stop. Pt slept ordreded Coenzyme Q10 200mg daily which she gets at home ([place] [facility] [place] and added Pt's own med) Plan 1. Gather collateral information. 2. Keep on 15 minute checks. 3. Start Zyprexa 2.5 p.o. q.h.s. as a mood stabilizer antipsychotics. On November 08 we are increasing to 5 mg p.o. q.h.s. to target carmen and psychosis. November 11 we increased up to 7.5 p.o. q.h.s. on November 13 we increased Zyprexa to 10 mg p.o. q.h.s.. 4. Reassessment with results. 5. From November 11 we order for November 12 Depakote level and comprehensive metabolic panel fasting. It came back with a subtherapeutic Depakote level. 6. Increase Depakote up to 500 mg p.o. b.i.d. November 12. On November 15 we are changing to 250 mg in the morning and 500 more mg at night. 7. Discharge next Sunday Reason for continued inpatient stay Substantial Risk for: inability to function, rapid decompensation and med/psych decompensation Time Spent With Patient Time: Total time managing care of this patient today __20__ minutes.
--- NOTE | 2023-11-16 14:21 | P.DS_ITS ---
DS: Providers Provider Date of Service: 11/16/23 Date of admission: 11/07/23 19:55 Date of discharge: 11/19/23 Primary care physician: Unknown Physician Consults: 11/07/23 20:32 Consult to Hospitalist Routine Comment: Consulting Provider: Hospitalist Reason For Exam: Direct admission 11/12/23 10:22 Consult to Hospitalist Routine Comment: Consulting Provider: Hospitalist Reason For Exam: b/l lower limb edema DS: Diagnosis Discharge Diagnosis (1) Bipolar disorder: Status: Acute DS: Medications Discharge Medications Home Medications: Home Medications ?Medication ?Instructions ?Recorded ?Confirmed albuterol sulfate 90 mcg/actuation 2 puff inhalation Q4-6H PRN 11/07/23 11/07/23 aerosol inhaler Shortness Of Breath Or Wheezing atorvastatin 80 mg tablet 80 mg PO DAILY 11/07/23 11/07/23 clopidogrel 75 mg tablet 75 mg PO DAILY 11/07/23 11/07/23 fluticasone propionate 50 2 spray intranasal DAILY 11/07/23 11/07/23 mcg/actuation nasal spray,suspension hydralazine 50 mg tablet 100 mg PO TID 11/07/23 11/07/23 losartan 100 mg tablet 100 mg PO BEDTIME 11/07/23 11/07/23 montelukast 10 mg tablet 10 mg PO BEDTIME 11/07/23 11/07/23 nifedipine 60 mg tablet,extended 120 mg PO DAILY 11/07/23 11/07/23 release 24 hr potassium chloride 10 mEq 40 meq PO DAILY 11/07/23 11/07/23 tablet,extended release ruxolitinib 5 mg tablet (Jakafi) 5 mg PO BID 11/07/23 11/07/23 sertraline 50 mg tablet 50 mg PO DAILY 11/07/23 11/07/23 triamterene 37.5 1 tab PO DAILY 11/07/23 11/07/23 mg-hydrochlorothiazide 25 mg tablet Previous Rx's ?Medication ?Instructions ?Recorded coenzyme Q10 200 mg capsule 200 mg PO DAILY 30 days #30 caps 11/10/23 Mental Status Exam Mental Status Exam Patient Appearance: Well Grooomed and Appropriate Patient Orientation: Person and Situation Level of Consciousness: Awake and Appropriate Patient Behavior: Guarded and Passive Mood Description: Calm Affect Description: Constricted Patient Cognition Impaired: Yes Ability to Follow Directions: Good Speech Pattern: Clear Hallucinations: None Delusions: Ideas of Reference Thought Process: Distracted and Linear Thought Content: positive for [place] and positive for Poverty of Content Judgement: Fair Data Data Completed and Pending Completed studies during hospitalization [Text1]: 11/12/23 11/12/23 11/12/23 11:54 14:47 15:47 WBC RBC Hgb Hct MCV MCH MCHC RDW Plt Count MPV Immature Gran % (Auto) Neut % (Auto) Lymph % (Auto) [place] % (Auto) Eos % (Auto) Baso % (Auto) Lymph # (Auto) [place] # (Auto) Eos # (Auto) Baso # (Auto) Abs Immat Gran (auto) Absolute Neuts (auto) Absolute Nucleated RBC Nucleated RBC % (auto) Hold Purple Top Sodium 129 L Potassium 4.4 Chloride 98 Carbon Dioxide 23 Anion Gap 12 BUN 34 H Creatinine 1.45 H Estim Creat Clear Calc 30.9 Estimated GFR 35 Random Glucose 94 Fasting Glucose Osmolality 280 L Calcium 10.3 H Total Bilirubin AST ALT Alkaline Phosphatase Total Protein Albumin Hold Yellow Top Urine Osmolality 229 L Ur Random Sodium 43.0 Valproic Acid 11/13/23 11/14/23 11/15/23 07:09 21:52 07:52 WBC 6.9 RBC 3.06 L Hgb 9.1 L Hct 26.0 L MCV 85.0 MCH 29.7 MCHC 35.0 RDW 14.2 Plt Count 392 MPV 8.8 L Immature Gran % (Auto) 0.6 H Neut % (Auto) 75.6 H Lymph % (Auto) 9.5 L [place] % (Auto) 11.6 H Eos % (Auto) 2.3 Baso % (Auto) 0.4 Lymph # (Auto) 0.7 L [place] # (Auto) 0.8 Eos # (Auto) 0.2 Baso # (Auto) 0.0 Abs Immat Gran (auto) 0.04 H Absolute Neuts (auto) 5.2 Absolute Nucleated RBC 0.000 Nucleated RBC % (auto) 0.0 Hold Purple Top Sodium 131 L 130 L Potassium 3.7 3.5 Chloride 101 100 Carbon Dioxide 25 24 Anion Gap 9 L 10 L BUN 29 H 29 H Creatinine 1.38 1.48 H Estim Creat Clear Calc 32.4 30.3 Estimated GFR 37 34 Random Glucose 94 Fasting Glucose 97 Osmolality Calcium 9.2 D 9.0 Total Bilirubin 0.3 AST 36 H ALT 36 H Alkaline Phosphatase 68 Total Protein 4.8 L Albumin 3.1 L Hold Yellow Top See Note Urine Osmolality Ur Random Sodium Valproic Acid 22.8 L 11/16/23 08:11 WBC RBC Hgb Hct MCV MCH MCHC RDW Plt Count MPV Immature Gran % (Auto) Neut % (Auto) Lymph % (Auto) [place] % (Auto) Eos % (Auto) Baso % (Auto) Lymph # (Auto) [place] # (Auto) Eos # (Auto) Baso # (Auto) Abs Immat Gran (auto) Absolute Neuts (auto) Absolute Nucleated RBC Nucleated RBC % (auto) Hold Purple Top SEE NOTE Sodium 132 L Potassium 3.9 Chloride 102 Carbon Dioxide 24 Anion Gap 10 L BUN 29 H Creatinine 1.38 Estim Creat Clear Calc 32.4 Estimated GFR 37 Random Glucose 91 Fasting Glucose Osmolality Calcium 9.2 Total Bilirubin AST ALT Alkaline Phosphatase Total Protein Albumin Hold Yellow Top Urine Osmolality Ur Random Sodium Valproic Acid DS: Summary Hospital Course Hospital Course: The patient is a 77-year-old female, , mother of adult children, recently discharged from [facility] the day before of his her readmission to the emergency room after she showed clear symptoms of carmen and psychosis. According to the crisis assessment the patient was discharged the day before of presenting herself in the emergency room since she was with racing thoughts, auditory hallucinations and disorganized behavior. According to the crisis team the patient got an argument with her boyfriend and it was raining outside in [place] [employer] [place] and the police got involved. Her license was confiscated and she was brought to the emergency room. On intake interview, the patient was very pleasant cooperative, with fast speech, very expansive mood and speaking and using sign language. The patient asked for changes in her medications since she is taking several pills and she wants to prefer not to take anything. She denies active hallucinations or delusions but she was unable to follow the full interview due to flight of ideas. She adamantly denies suicidal ideation. The patient is a very poor historian and we were able to come attacked her family and gather more collateral information. Apparently the patient has never been diagnosed with bipolar disorder but apparently, as per the reports over children, she had manic symptoms as a young adult none recently she had worse. We review her list medications and she agreed to start treatment. We started slow titration of Zyprexa to 10 mg p.o. q.h.s. and we titrated Depakote up to 250 mg p.o. q.a.m. and 500 mg p.o. q.h.s. with for tolerability. She was able to participate in groups she was pleasant cooperative. Eventually she was transferred to an assisted living facility. No safety concerns Time spent discussing smoking cessation with patient: 3 to 10 minutes Status at Discharge Cognitive/behavioral status at discharge: Impaired at baseline Functional status at discharge: independent ambulation Overall status at discharge: patient is back to baseline Time Spent with Patient Time attestation: Total time managing care of this patient today __30__ minutes. Time spent: Less than 30 minutes Discharge Plan Discharge Anticipated Discharge Date/Time: 11/19/23 09:00 Patient Disposition: Xfer [facility] Discharge Diagnosis: Bipolar disorder Limited social support Referrals: Ophelia Mcguire NP [facility]/Psychiatry [Other] - 11/26/23 1:00 pm (Your first psychiatry appointment is scheduled for 11/26/23 at 1PM in the [place] office. Please bring insurance cards and arrive 15 minutes early to appointment to complete registration paperwork. ) [facility] [Other] - 11/20/23 10:30 am Raysa Clement MD PCP [Other] - 1 Week Discharge Medications: New atorvastatin 80 mg Tablet 80 mg PO BEDTIME 30 Days Qty: 30 0RF acetaminophen 325 mg Tablet 650 mg PO Q6H PRN (Reason: Headache/Pain Mild Scale (1-3)) 30 Days Qty: 60 0RF divalproex 250 mg Tablet,Delayed Release (Dr/Ec) 250 mg PO DAILY 30 Days Qty: 30 0RF trazodone 50 mg Tablet 50 mg PO BEDTIME MRX1 PRN (Reason: Insomnia) 30 Days Qty: 60 0RF olanzapine 10 mg Tablet 10 mg PO BEDTIME 30 Days Qty: 30 0RF clopidogrel 75 mg Tablet 75 mg PO DAILY@1630 30 Days Qty: 30 0RF potassium chloride 20 mEq Tablet,Er Particles/Crystals 20 meq PO BID@0830,1630 30 Days Qty: 60 0RF hydroxyzine HCl 25 mg Tablet 25 mg PO Q6H PRN (Reason: Anxiety) 30 Days Qty: 60 0RF hydralazine 50 mg Tablet 100 mg PO TID 30 Days Qty: 180 0RF Protocol: Hold for SBP< HOLD for SBP < : 90 triamterene-hydrochlorothiazid 75-50 mg Tablet 1 tab PO DAILY 30 Days Qty: 30 0RF Protocol: Hold for SBP< HOLD for SBP < : 90 lorazepam 1 mg Tablet 1 mg PO BEDTIME 30 Days Qty: 30 0RF fluticasone propionate 50 mcg/actuation [place],Suspension 2 spray intranasal DAILY 30 Days Qty: 2 0RF divalproex 125 mg Capsule, Delayed Rel Sprinkle 500 mg PO BEDTIME 30 Days Qty: 120 0RF Continued coenzyme Q10 200 mg Capsule 200 mg PO DAILY 30 Days Qty: 30 1RF nifedipine 60 mg tablet extended release 24hr 120 mg PO DAILY 30 Days Qty: 60 0RF montelukast 10 mg tablet 10 mg PO BEDTIME 30 Days Qty: 30 0RF albuterol sulfate 90 mcg/actuation Hfa Aerosol Inhaler 2 puff INHALATION Q4-6H PRN (Reason: Shortness Of Breath Or Wheezing) 30 Days Qty: 1 0RF losartan 100 mg tablet 100 mg PO BEDTIME 30 Days Qty: 30 0RF sertraline 50 mg tablet 50 mg PO DAILY 30 Days Qty: 30 0RF Jakafi 5 mg Tablet 5 mg PO BID 30 Days Qty: 60 0RF Discontinued atorvastatin 80 mg tablet 80 mg PO DAILY potassium chloride 10 mEq tablet extended release 40 meq PO DAILY hydralazine 50 mg tablet 100 mg PO TID clopidogrel 75 mg tablet 75 mg PO DAILY triamterene-hydrochlorothiazid 37.5-25 mg Tablet 1 tab PO DAILY fluticasone propionate 50 mcg/actuation [place],Suspension 2 spray INTRANASAL DAILY Rx Instructions: administer into each nostril Discharge Orders: Discharge Order (Routine); Ordered 11/19/23 Ordered By: Kofi Trevino Diet: Advance to usual diet Activity on Discharge: As tolerated Stand Alone Forms: Patient Portal Discharge page Print Language: Irish Care Plan Goals: Care plan goals achieved in this admission Health Concerns: Continue treatment with primary care physician and outpatient providers Plan of Treatment: Continue psychiatric treatment as an outpatient. Assessment: The patient is an elderly female with a past history of mood disorder most likely bipolar disorder who was not been treated who was admitted into this facility after being referred to the emergency room of another hospital 24 hours after being discharged from another psychiatric facility for a similar presentation. She was assessed by crisis and transferring to this facility for psychiatric stabilization. On admission the patient was grossly manic and we added Zyprexa titrated up to 10 mg p.o. q.h.s. and Depakote 250 mg p.o. q.a.m. and 500 mg p.o. q.h.s. with for improvement and resolution of carmen. The patient was discharged to an assisted living facility with follow-up appointments.
[2023-11-16] MEDS: Clopidogrel Bisulfate 75 MG TABLET PO (15:32)
[2023-11-16] MEDS: COENZYME Q10 100 MG 2 EACH PO (19:54)
[2023-11-16 19:55] VITALS: BP 141/60
[2023-11-16] MEDS: Losartan Potassium 50 MG TABLET 100 MG PO (19:55)
[2023-11-16 19:56] VITALS: BP 141/70
[2023-11-16] MEDS: Montelukast Sodium 10 MG TABLET PO (19:56)
[2023-11-16] MEDS: LORazepam 1 MG TABLET PO (19:56)
[2023-11-16] MEDS: Atorvastatin Calcium 80 MG TABLET PO (19:57)
[2023-11-16] MEDS: traZODone HCL 50 MG TABLET PO (19:57)
[2023-11-16] MEDS: OLANZapine 10 MG TABLET PO (19:58)
[2023-11-16 20:00] VITALS: BP 141/60; PULSE 80; RESP 16; TEMP 36.3; O2SAT 95
[2023-11-16] MEDS: Albuterol Sulfate 90 MCG 8 GM INHALER 2 PUFF INHALE (20:15)
[2023-11-17] VITALS (7 sets, daily range): BP systolic 132–164; BP diastolic 67–94; PULSE 65–69; RESP 6–18; TEMP 36.2–36.3; O2SAT 96–97
[2023-11-17] MEDS: Acetaminophen 325 MG TABLET 650 MG PO ×2 (04:18→20:42)
[2023-11-17] MEDS: Fluticasone Propionate Nasal 16 GM SPRAY 2 SPRAY NOSTRIL-B (09:17)
[2023-11-17] MEDS: Potassium Chloride ER 20 MEQ TAB.ER.PRT PO ×2 (09:18→15:39)
[2023-11-17] MEDS: hydrALAZINE HCl 50 MG TABLET 100 MG PO ×3 (09:18→20:41)
[2023-11-17] MEDS: NIFEdipine ER 60 MG TAB.ER.24 120 MG PO (09:19)
[2023-11-17] MEDS: Triamterene/HCTZ 75/50 TABLET 1 TAB PO (09:19)
[2023-11-17] MEDS: Divalproex Sodium 250 MG TABLET.DR PO (09:19)
[2023-11-17] MEDS: RUXOLITINIB 5 MG 5 EACH PO (09:20)
[2023-11-17] MEDS: Sertraline HCL 50 MG TABLET PO (09:20)
[2023-11-17] MEDS: Albuterol Sulfate 90 MCG 8 GM INHALER 2 PUFF INHALE (12:08)
--- NOTE | 2023-11-17 15:03 | P.PNPSI_ITS ---
Subjective Subjective Date of Service: 11/17/23 Reason For Visit: Psychosis unspecified Subjective Notes: Conditional Voluntary Interim History: Patient was seen and discussed in rounds today. Records and plans were reviewed. She has been having 2 to 3+ pitting edema in her lower extremities and it is uncomfortable. She has had this in the past. I ordered Lasix 20 mg daily. She has been eating and sleeping adequately. No other changes were made Diagnostics Vital Signs (24Hr): Vital Signs - 24 hr 11/16/23 19:55 11/16/23 19:56 11/16/23 20:00 Temperature 97.3 F Pulse Rate 80 Respiratory Rate 16 Blood Pressure 141/60 H 141/70 H 141/60 H Pulse Oximetry 95 Oxygen Delivery Method Room Air 11/17/23 08:15 11/17/23 09:18 11/17/23 09:19 Temperature 97.1 F Pulse Rate 67 Respiratory Rate 18 Blood Pressure 164/67 H 164/67 H 164/67 H Pulse Oximetry 96 Oxygen Delivery Method Room Air 11/17/23 09:19 Temperature Pulse Rate Respiratory Rate Blood Pressure 164/67 H Pulse Oximetry Oxygen Delivery Method BMI result Body Mass Index 24.4 Labs 11/14/23 21:52 11/16/23 08:11 Labs: Laboratory Results - last 48 hr 11/16/23 08:11 Hold Purple Top SEE NOTE Sodium 132 L Potassium 3.9 Chloride 102 Carbon Dioxide 24 Anion Gap 10 L BUN 29 H Creatinine 1.38 Estim Creat Clear Calc 32.4 Estimated GFR 37 Random Glucose 91 Calcium 9.2 Medications Medications Current Medications Acetaminophen (Acetaminophen 325 Mg Tablet) 650 mg PO Q6H PRN PRN Reason: Headache/Pain Mild Scale (1-3) Last Admin: 11/17/23 04:18 Dose: 650 mg Al Hydroxide/Mg Hydroxide (Magnesium Hydrox/Alum Hydrox 30 Ml Oral.Susp) 30 ml PO Q6H PRN PRN Reason: Heartburn/Nausea Albuterol Sulfate (Albuterol Sulfate 90 Mcg 8 Gm Inhaler) 2 puff INHALE Q4H PRN PRN Reason: Shortness Of Breath Or Wheezing Last Admin: 11/17/23 12:08 Dose: 2 puff Atorvastatin Calcium (Atorvastatin Calcium 80 Mg Tablet) 80 mg PO BEDTIME NBA Last Admin: 11/16/23 19:57 Dose: 80 mg Clopidogrel Bisulfate (Clopidogrel Bisulfate 75 Mg Tablet) 75 mg PO DAILY@1630 [facility] Last Admin: 11/16/23 15:32 Dose: 75 mg Divalproex Sodium (Divalproex Sodium Sprinkles 125 Mg Cap.) 500 mg PO BEDTIME [facility] Last Admin: 11/16/23 19:54 Dose: 500 mg Divalproex Sodium (Divalproex Sodium 250 Mg Tablet.Dr) 250 mg PO DAILY [facility] Last Admin: 11/17/23 09:19 Dose: 250 mg Fluticasone Propionate (Fluticasone Propionate Nasal 16 Gm [place]) 2 spray NOSTRIL-B DAILY [facility] Last Admin: 11/17/23 09:17 Dose: 2 spray Hydralazine HCl (Hydralazine Hcl 50 Mg Tablet) 100 mg PO TID [facility]; Protocol Last Admin: 11/17/23 09:18 Dose: 100 mg Hydroxyzine HCl (Hydroxyzine Hcl 25 Mg Tablet) 25 mg PO Q6H PRN PRN Reason: Anxiety Last Admin: 11/13/23 23:55 Dose: 25 mg Lorazepam (Lorazepam 1 Mg Tablet) 1 mg PO BEDTIME [facility] Last Admin: 11/16/23 19:56 Dose: 1 mg Losartan Potassium (Losartan Potassium 50 Mg Tablet) 100 mg PO BEDTIME [facility]; Protocol Last Admin: 11/16/23 19:55 Dose: 100 mg Magnesium Hydroxide (Milk Of Magnesia 30 Ml Oral.Susp) 30 ml PO DAILY PRN PRN Reason: Constipation Montelukast Sodium (Montelukast Sodium 10 Mg Tablet) 10 mg PO BEDTIME [facility] Last Admin: 11/16/23 19:56 Dose: 10 mg Nifedipine (Nifedipine Er 60 Mg Tab.Er.24) 120 mg PO DAILY [facility]; Protocol Last Admin: 11/17/23 09:19 Dose: 120 mg Pt Own Coenzyme Q10 (100 Mg) 2 each PO BEDTIME [facility] Last Admin: 11/16/23 19:54 Dose: 2 each Pt Own (Ruxolitinib [Jakafi] 5 Mg Tablet ) 5 mg PO DAILY [facility] Last Admin: 11/17/23 09:20 Dose: 5 mg Olanzapine (Olanzapine 10 Mg Tablet) 10 mg PO BEDTIME [facility] Last Admin: 11/16/23 19:58 Dose: 10 mg Potassium Chloride (Potassium Chloride Er 20 Meq Tab.Er.Prt) 20 meq PO BID@0830,1630 [facility] Last Admin: 11/17/23 09:18 Dose: 20 meq Sertraline HCl (Sertraline Hcl 50 Mg Tablet) 50 mg PO DAILY [facility] Last Admin: 11/17/23 09:20 Dose: 50 mg Trazodone HCl (Trazodone Hcl 50 Mg Tablet) 50 mg PO BEDTIME MRX1 PRN PRN Reason: Insomnia Last Admin: 11/16/23 19:57 Dose: 50 mg Triamterene/Hydrochlorothiazide (Triamterene/Hctz 75/50 Tablet) 1 tab PO DAILY [facility]; Protocol Last Admin: 11/17/23 09:19 Dose: 1 tab Allergies Allergies Allergy/AdvReac Type Severity Reaction Status Date / Time aspirin Allergy Intermediate Shortness Verified 11/07/23 20:23 of Breath doxazosin Allergy Intermediate Swelling Verified 11/07/23 20:28 pravastatin Allergy Intermediate Muscle Pain Verified 11/07/23 20:26 prochlorperazine Allergy Intermediate Shortness Verified 11/07/23 20:27 of Breath spironolactone Allergy Intermediate Nausea Verified 11/07/23 20:23 Sulfa (Sulfonamide Allergy Intermediate Wheezing Verified 11/07/23 20:28 Antibiotics) labetalol Allergy Swelling Verified 11/07/23 20:25 Penicillins Allergy Shortness Verified 11/07/23 20:26 of Breath Iodinated Contrast Media AdvReac Severe Shortness Verified 11/07/23 20:24 of Breath Assessment & Plan Assessment & Plan (1) Bipolar disorder: Status: Acute Code(s): F31.9 - Bipolar disorder, unspecified Plan The patient is an elderly female with a past history of recent admission to [facility] for psychosis and carmen, readmitted for irritable behavior and disorganization with carmen. On interview the patient was grossly manic but easily redirectable. Hospital course: 11/10 started pt on Depakote 250mg on 11/09 nighttime since no sleep night before and talking non-stop. Pt slept ordreded Coenzyme Q10 200mg daily which she gets at home (sent script to [facility] and added Pt's own med) Plan 1. Gather collateral information. 2. Keep on 15 minute checks. 3. Start Zyprexa 2.5 p.o. q.h.s. as a mood stabilizer antipsychotics. On November 08 we are increasing to 5 mg p.o. q.h.s. to target carmen and psychosis. November 11 we increased up to 7.5 p.o. q.h.s. on November 13 we increased Zyprexa to 10 mg p.o. q.h.s.. 4. Reassessment with results. 5. From November 11 we order for November 12 Depakote level and comprehensive metabolic panel fasting. It came back with a subtherapeutic Depakote level. 6. Increase Depakote up to 500 mg p.o. b.i.d. November 12. On November 15 we are changing to 250 mg in the morning and 500 more mg at night. 7. Discharge next Sunday Reason for continued inpatient stay Substantial Risk for: med/psych decompensation Time Spent With Patient Time: Total time managing care of this patient today ____ minutes.
[2023-11-17] MEDS: Clopidogrel Bisulfate 75 MG TABLET PO (15:40)
[2023-11-17] MEDS: Furosemide 20 MG TABLET PO (15:40)
[2023-11-17] MEDS: Atorvastatin Calcium 80 MG TABLET PO (20:40)
[2023-11-17] MEDS: Divalproex Sodium Sprinkles 125 MG CAP.DR.SPR 500 MG PO (20:40)
[2023-11-17] MEDS: OLANZapine 10 MG TABLET PO (20:40)
[2023-11-17] MEDS: Losartan Potassium 50 MG TABLET 100 MG PO (20:40)
[2023-11-17] MEDS: LORazepam 1 MG TABLET PO (20:42)
[2023-11-17] MEDS: Montelukast Sodium 10 MG TABLET PO (20:42)
[2023-11-17] MEDS: COENZYME Q10 100 MG 2 EACH PO (20:43)
[2023-11-18] MEDS: Acetaminophen 325 MG TABLET 650 MG PO (03:02)
[2023-11-18 08:37] VITALS: BP 157/70; PULSE 67; RESP 18; TEMP 36.5; O2SAT 97
[2023-11-18] MEDS: NIFEdipine ER 60 MG TAB.ER.24 120 MG PO (08:38)
[2023-11-18] MEDS: hydrALAZINE HCl 50 MG TABLET 100 MG PO ×3 (08:38→20:36)
[2023-11-18] MEDS: Divalproex Sodium 250 MG TABLET.DR PO (08:38)
[2023-11-18] MEDS: Sertraline HCL 50 MG TABLET PO (08:39)
[2023-11-18] MEDS: RUXOLITINIB 5 MG 5 EACH PO (08:39)
[2023-11-18] MEDS: Furosemide 20 MG TABLET PO (08:39)
[2023-11-18] MEDS: Triamterene/HCTZ 75/50 TABLET 1 TAB PO (08:39)
[2023-11-18] MEDS: Potassium Chloride ER 20 MEQ TAB.ER.PRT PO ×2 (08:39→16:29)
--- NOTE | 2023-11-18 12:53 | P.PNPSI_ITS ---
Subjective Subjective Date of Service: 11/18/23 Reason For Visit: Psychosis unspecified Subjective Notes: Conditional Voluntary Interim History: Patient was seen and discussed in rounds today. Records and plans were reviewed. She has done well with Lasix and the lower extremity edema is markedly improved. She denies any side effects. Nursing reports no behavioral issues. No changes were made today Review of Systems Review of Systems Yes all other systems are reviewed and are negative Mental Status Exam Mental Status Exam Patient Appearance: Well Grooomed and Appropriate Patient Orientation: Person and Situation Level of Consciousness: Awake and Appropriate Patient Behavior: Guarded and Passive Mood Description: Calm Affect Description: Constricted Patient Cognition Impaired: Yes Ability to Follow Directions: Good Speech Pattern: Clear Hallucinations: None Delusions: Ideas of Reference Thought Process: Distracted and Linear Thought Content: positive for [place] and positive for Poverty of Content Judgement: Fair Diagnostics Vital Signs (24Hr): Vital Signs - 24 hr 11/17/23 15:35 11/17/23 20:00 11/17/23 20:40 Temperature 97.3 F Pulse Rate 69 65 Respiratory Rate 6 L Blood Pressure 158/71 H 132/94 H 132/94 H Pulse Oximetry 97 Oxygen Delivery Method Room Air 11/17/23 20:41 11/18/23 08:37 Temperature 97.7 F Pulse Rate 67 Respiratory Rate 18 Blood Pressure 132/94 H 157/70 H Pulse Oximetry 97 Oxygen Delivery Method Room Air BMI result Body Mass Index 24.4 Labs 11/14/23 21:52 11/16/23 08:11 Medications Medications Current Medications Acetaminophen (Acetaminophen 325 Mg Tablet) 650 mg PO Q6H PRN PRN Reason: Headache/Pain Mild Scale (1-3) Last Admin: 11/18/23 03:02 Dose: 650 mg Al Hydroxide/Mg Hydroxide (Magnesium Hydrox/Alum Hydrox 30 Ml Oral.Susp) 30 ml PO Q6H PRN PRN Reason: Heartburn/Nausea Albuterol Sulfate (Albuterol Sulfate 90 Mcg 8 Gm Inhaler) 2 puff INHALE Q4H PRN PRN Reason: Shortness Of Breath Or Wheezing Last Admin: 11/17/23 12:08 Dose: 2 puff Atorvastatin Calcium (Atorvastatin Calcium 80 Mg Tablet) 80 mg PO BEDTIME [facility] Last Admin: 11/17/23 20:40 Dose: 80 mg Clopidogrel Bisulfate (Clopidogrel Bisulfate 75 Mg Tablet) 75 mg PO DAILY@1630 [facility] Last Admin: 11/17/23 15:40 Dose: 75 mg Divalproex Sodium (Divalproex Sodium Sprinkles 125 Mg Cap.) 500 mg PO BEDTIME [facility] Last Admin: 11/17/23 20:40 Dose: 500 mg Divalproex Sodium (Divalproex Sodium 250 Mg Tablet.Dr) 250 mg PO DAILY [facility] Last Admin: 11/18/23 08:38 Dose: 250 mg Fluticasone Propionate (Fluticasone Propionate Nasal 16 Gm [place]) 2 spray NOSTRIL-B DAILY [facility] Last Admin: 11/18/23 08:50 Dose: Not Given Furosemide (Furosemide 20 Mg Tablet) 20 mg PO DAILY [facility]; Protocol Last Admin: 11/18/23 08:39 Dose: 20 mg Hydralazine HCl (Hydralazine Hcl 50 Mg Tablet) 100 mg PO TID [facility]; Protocol Last Admin: 11/18/23 08:38 Dose: 100 mg Hydroxyzine HCl (Hydroxyzine Hcl 25 Mg Tablet) 25 mg PO Q6H PRN PRN Reason: Anxiety Last Admin: 11/13/23 23:55 Dose: 25 mg Lorazepam (Lorazepam 1 Mg Tablet) 1 mg PO BEDTIME [facility] Last Admin: 11/17/23 20:42 Dose: 1 mg Losartan Potassium (Losartan Potassium 50 Mg Tablet) 100 mg PO BEDTIME [facility]; Protocol Last Admin: 11/17/23 20:40 Dose: 100 mg Magnesium Hydroxide (Milk Of Magnesia 30 Ml Oral.Susp) 30 ml PO DAILY PRN PRN Reason: Constipation Montelukast Sodium (Montelukast Sodium 10 Mg Tablet) 10 mg PO BEDTIME [facility] Last Admin: 11/17/23 20:42 Dose: 10 mg Nifedipine (Nifedipine Er 60 Mg Tab.Er.24) 120 mg PO DAILY [facility]; Protocol Last Admin: 11/18/23 08:38 Dose: 120 mg Pt Own Coenzyme Q10 (100 Mg) 2 each PO BEDTIME [facility] Last Admin: 11/17/23 20:43 Dose: 2 each Pt Own (Ruxolitinib [Jakafi] 5 Mg Tablet ) 5 mg PO DAILY [facility] Last Admin: 11/18/23 08:39 Dose: 5 mg Olanzapine (Olanzapine 10 Mg Tablet) 10 mg PO BEDTIME [facility] Last Admin: 11/17/23 20:40 Dose: 10 mg Potassium Chloride (Potassium Chloride Er 20 Meq Tab.Er.Prt) 20 meq PO BID@0830,1630 [facility] Last Admin: 11/18/23 08:39 Dose: 20 meq Sertraline HCl (Sertraline Hcl 50 Mg Tablet) 50 mg PO DAILY [facility] Last Admin: 11/18/23 08:39 Dose: 50 mg Trazodone HCl (Trazodone Hcl 50 Mg Tablet) 50 mg PO BEDTIME MRX1 PRN PRN Reason: Insomnia Last Admin: 11/16/23 19:57 Dose: 50 mg Triamterene/Hydrochlorothiazide (Triamterene/Hctz 75/50 Tablet) 1 tab PO DAILY [facility]; Protocol Last Admin: 11/18/23 08:39 Dose: 1 tab Allergies Allergies Allergy/AdvReac Type Severity Reaction Status Date / Time aspirin Allergy Intermediate Shortness Verified 11/07/23 20:23 of Breath doxazosin Allergy Intermediate Swelling Verified 11/07/23 20:28 pravastatin Allergy Intermediate Muscle Pain Verified 11/07/23 20:26 prochlorperazine Allergy Intermediate Shortness Verified 11/07/23 20:27 of Breath spironolactone Allergy Intermediate Nausea Verified 11/07/23 20:23 Sulfa (Sulfonamide Allergy Intermediate Wheezing Verified 11/07/23 20:28 Antibiotics) labetalol Allergy Swelling Verified 11/07/23 20:25 Penicillins Allergy Shortness Verified 11/07/23 20:26 of Breath Iodinated Contrast Media AdvReac Severe Shortness Verified 11/07/23 20:24 of Breath Assessment & Plan Assessment & Plan (1) Bipolar disorder: Status: Acute Code(s): F31.9 - Bipolar disorder, unspecified Plan The patient is an elderly female with a past history of recent admission to [facility] for psychosis and carmen, readmitted for irritable behavior and disorganization with carmen. On interview the patient was grossly manic but easily redirectable. Hospital course: 11/10 started pt on Depakote 250mg on 11/09 nighttime since no sleep night before and talking non-stop. Pt slept ordreded Coenzyme Q10 200mg daily which she gets at home (sent script to [facility] and added Pt's own med) 11/17: Continue current regimen and plans Plan 1. Gather collateral information. 2. Keep on 15 minute checks. 3. Start Zyprexa 2.5 p.o. q.h.s. as a mood stabilizer antipsychotics. On November 08 we are increasing to 5 mg p.o. q.h.s. to target carmen and psychosis. November 11 we increased up to 7.5 p.o. q.h.s. on November 13 we increased Zyprexa to 10 mg p.o. q.h.s.. 4. Reassessment with results. 5. From November 11 we order for November 12 Depakote level and comprehensive metabolic panel fasting. It came back with a subtherapeutic Depakote level. 6. Increase Depakote up to 500 mg p.o. b.i.d. November 12. On November 15 we are changing to 250 mg in the morning and 500 more mg at night. 7. Discharge next Sunday Reason for continued inpatient stay Substantial Risk for: med/psych decompensation Time Spent With Patient Time: Total time managing care of this patient today ____ minutes.
[2023-11-18] MEDS: Clopidogrel Bisulfate 75 MG TABLET PO (16:29)
[2023-11-18 19:45] VITALS: BP 148/88; PULSE 86; RESP 18; TEMP 36.4; O2SAT 99
[2023-11-18] MEDS: OLANZapine 10 MG TABLET PO (20:36)
[2023-11-18] MEDS: Losartan Potassium 50 MG TABLET 100 MG PO (20:36)
[2023-11-18] MEDS: Divalproex Sodium Sprinkles 125 MG CAP.DR.SPR 500 MG PO (20:36)
[2023-11-18] MEDS: LORazepam 1 MG TABLET PO (20:36)
[2023-11-18] MEDS: Montelukast Sodium 10 MG TABLET PO (20:36)
[2023-11-18] MEDS: Atorvastatin Calcium 80 MG TABLET PO (20:36)
[2023-11-18] MEDS: COENZYME Q10 100 MG 2 EACH PO (20:37)
[2023-11-19] MEDS: Acetaminophen 325 MG TABLET 650 MG PO (02:03)
[2023-11-19 08:17] LABS: Valproate 39.8 mcg/mL (50.0-100.0)
[2023-11-19 08:19] VITALS: BP 130/80; PULSE 68; RESP 17; TEMP 36.1; O2SAT 97
[2023-11-19] MEDS: Furosemide 20 MG TABLET PO (08:20)
[2023-11-19] MEDS: Triamterene/HCTZ 75/50 TABLET 1 TAB PO (08:20)
[2023-11-19] MEDS: Divalproex Sodium 250 MG TABLET.DR PO (08:20)
[2023-11-19] MEDS: hydrALAZINE HCl 50 MG TABLET 100 MG PO (08:20)
[2023-11-19] MEDS: Sertraline HCL 50 MG TABLET PO (08:20)
[2023-11-19] MEDS: NIFEdipine ER 60 MG TAB.ER.24 120 MG PO (08:20)
[2023-11-19] MEDS: Potassium Chloride ER 20 MEQ TAB.ER.PRT PO (08:20)
[2023-11-19] MEDS: RUXOLITINIB 5 MG 5 EACH PO (08:21)
== END 2023-11-19 11:00 | DRG 885 ==
PROVIDERS: Physician Assistant; Admitting Provider Psychiatry & Neurology Psychiatry; Visit Provider Psychiatry & Neurology Psychiatry
DX: F31.2 Bipolar disorder, current episode manic severe with psychotic features (principal); E87.1 Hypo-osmolality and hyponatremia; N25.81 Secondary hyperparathyroidism of renal origin; I25.10 Atherosclerotic heart disease of native coronary artery without angina pectoris; J45.40 Moderate persistent asthma, uncomplicated; E78.5 Hyperlipidemia, unspecified; I12.9 Hypertensive chronic kidney disease with stage 1 through stage 4 chronic kidney disease, or unspecified chronic kidney disease; N18.30 Chronic kidney disease, stage 3 unspecified; K21.9 Gastro-esophageal reflux disease without esophagitis; I73.9 Peripheral vascular disease, unspecified; Z79.02 Long term (current) use of antithrombotics/antiplatelets; Z79.51 Long term (current) use of inhaled steroids; Z79.899 Other long term (current) drug therapy
CPT/HCPCS: 36415; 80048; 80053; 80061; 80164; 83930; 83935; 84300; 85025; 99222

== ENCOUNTER → 2023-11-07 19:55 | Outpatient (BNV) | payer MEDICARE, OTHER, SELFPAY | PROVIDERS: Admitting Provider Psychiatry & Neurology Psychiatry; Visit Provider Psychiatry & Neurology Psychiatry | DX: F31.2 Bipolar disorder, current episode manic severe with psychotic features (principal) | CPT/HCPCS: 90792; 99231; 99232; 99238 ==